=== PATIENT | male | born 1955 | race Caucasian/White ===

== ENCOUNTER 2017-03-24 08:31 | Inpatient (IN) | payer MEDICARE, OTHER ==
[2017-03-24] MEDS ORDERED: NACL 0.9% 1000 ML 1,000 ML IV ONE (08:54)
[2017-03-24] MEDS ORDERED: ZOFRAN IV ONE (09:27)
[2017-03-24] MEDS ORDERED: ZOFRAN ONE (09:29)
[2017-03-24 09:41] LABS: Basophils % (Auto) 0.5 % (0.0-1.8); Eosinophils % (Auto) 1.6 % (0.0-4.3); Mean Corpuscular HGB Conc 32 % (32-34); Mean Corpuscular Hemoglobin 30 pg (28-32); Mean Corpuscular Volume 94 fl (84-94); Platelet Count 189 K/mm3 (140-440); Red Blood Count 1.13 M/mm3 (3.65-5.03); White Blood Count 9.7 K/mm3 (4.5-11.0)
[2017-03-24 09:43] LABS: Hematocrit 10.6 % (35.5-45.6); Hemoglobin 3.4 gm/dl (11.8-15.2)
[2017-03-24 09:44] LABS: Red Cell Distribution Width 20.1 % (13.2-15.2)
[2017-03-24] MEDS ORDERED: NACL 0.9% 500 ML 500 ML IV ONE ×3 (09:48→16:29)
[2017-03-24 09:59] LABS: Alanine Aminotransferase 14 units/L (7-56); Albumin 1.9 g/dL (3.9-5); Albumin/Globulin Ratio 0.7 %; Alkaline Phosphatase 129 units/L (35-129); Anion Gap 18 mmol/L; Bilirubin,Direct 0.6 mg/dL (0-0.2); Bilirubin,Indirect 0.9 mg/dL; Blood Urea Nitrogen 40 mg/dL (9-20); Calcium 7.1 mg/dL (8.4-10.2); Carbon Dioxide 20 mmol/L (22-30); Chloride 102.3 mmol/L (98-107); Glucose 107 mg/dL (75-100); Lipase 146 units/L (13-60); Sodium 136 mmol/L (137-145); Total Protein 4.7 g/dL (6.3-8.2)
[2017-03-24 10:00] LABS: INR 1.62 (0.87-1.13)
[2017-03-24 10:01] LABS: Partial Thromboplastin Time 34.8 Sec. (24.2-36.6)
[2017-03-24] MEDS ORDERED: PROTONIX IV ONE (10:15)
--- NOTE | 2017-03-24 11:10 | Emergency Department Report ---
ED GI Bleed HPI - General Chief complaint: Weakness Stated complaint: WEAKNESS Time Seen by Provider: 03/24/17 09:32 Source: EMS Mode of arrival: Stretcher Limitations: No Limitations - History of Present Illness Initial comments: Pt presents to ED with c/o generalize weakness, vomiting bright red blood, black stools on and off x 2 weeks. Pt had an episode of hematemesis this morning. Pt was recently at [facility] and revealed he was transfused about 2-4 units of blood. Pt has past medical h/o Liver cirrhosis complaint: gross hematemesis, melena -: Sudden (episode this morning. Over the last 2 weeks, pt has had on and off episodes) Location: epigastric (discomfort) Radiation: none Severity scale (0 -10): 5 Quality: cramping Consistency: intermittent Improves with: none Worsens with: none Context: liver disease Associated Symptoms: abdominal pain, nausea, loss of appetite, malaise, weakness - Related Data Allergies Allergy/AdvReac Type Severity Reaction Status Date / Time Penicillins AdvReac Rash Verified 03/24/17 08:49 ED Review of Systems ROS: Stated complaint: WEAKNESS Other details as noted in HPI Comment: All other systems reviewed and negative Constitutional: diaphoresis, malaise, weakness. denies: fever Eyes: denies: eye pain, eye discharge, vision change ENT: denies: ear pain, throat pain, dental pain, hearing loss Respiratory: shortness of breath. denies: cough, SOB at rest Cardiovascular: denies: as per HPI, chest pain, palpitations, dyspnea on exertion, edema, syncope Endocrine: no symptoms reported Gastrointestinal: as per HPI, abdominal pain, nausea, vomiting, hematemesis, melena Genitourinary: denies: urgency, frequency, hematuria, discharge Skin: denies: lesions, change in color, change in hair/nails, pruritus Neurological: weakness. denies: numbness, paresthesias, confusion ED Past Medical Hx - Past Medical History Previous Medical History?: Yes Hx Liver Disease: Yes Additional medical history: GI Bleed, Jaundice, Cirrhosis - Social History Smoking Status: Former Smoker ED Physical Exam - General Limitations: No Limitations General appearance: lethargic, in distress (mild to moderate), other (anemic) - Head Head exam: Present: atraumatic, normocephalic - Eye Eye exam: Present: normal appearance, PERRL, EOMI, scleral icterus - ENT ENT exam: Present: normal orophraynx, mucous membranes dry - Neck Neck exam: Present: normal inspection, full ROM. Absent: tenderness, meningismus, lymphadenopathy - Respiratory Respiratory exam: Present: normal lung sounds bilaterally. Absent: wheezes, rales, rhonchi, chest wall tenderness - Cardiovascular Cardiovascular Exam: Present: regular rate, normal rhythm, normal heart sounds - GI/Abdominal GI/Abdominal exam: Present: soft, tenderness (epigastric region), hypoactive bowel sounds - Rectal Rectal exam: Present: deferred - Extremities Exam Extremities exam: Present: normal inspection, full ROM - Back Exam Back exam: Present: normal inspection, CVA tenderness (L) - Neurological Exam Neurological exam: Present: alert, oriented X3 ED Course Vital Signs 03/24/17 03/24/17 03/24/17 08:49 10:00 10:20 Temperature 98 F 98.1 F Pulse Rate 66 89 90 Respiratory 18 16 18 Rate Blood Pressure 104/46 122/59 Blood Pressure 111/45 [Left] O2 Sat by Pulse 100 100 99 Oximetry 03/24/17 03/24/17 03/24/17 10:31 10:46 11:08 Temperature 97.9 F 98.3 F 98 F Pulse Rate 98 H 96 H 90 Respiratory 17 18 18 Rate Blood Pressure 119/55 110/49 112/48 Blood Pressure [Left] O2 Sat by Pulse 100 100 100 Oximetry 03/24/17 03/24/17 03/24/17 11:29 11:44 12:25 Temperature 98 F 98.3 F 98 F Pulse Rate 89 89 84 Respiratory 18 18 18 Rate Blood Pressure 119/51 107/51 122/69 Blood Pressure [Left] O2 Sat by Pulse 100 100 100 Oximetry - Consultations Consultation #1: 03/24/17 11:10 d/w JENN Walton, covering from Dr Ivey,[ GI ] she would come and see pt in ED 03/24/17 12:37 Pt discussed with Hospitalist, he accepts, pt'ss admission ED Medical Decision Making - Lab Data Result diagrams: 03/24/17 09:25 03/24/17 09:24 - EKG Data -: EKG Interpreted by Me EKG shows normal: sinus rhythm, axis (normal) - EKG Data 09/27/17 09:14 NSR, rate of 94/min, normal axis, STD in I,II, III aVF, V3-V6 T wave inversions in I, II, III aVF, V 3-V6, Critical Care Time: Yes Critical care attestation.: If time is entered above; I have spent that time in minutes in the direct care of this critically ill patient, excluding procedure time. Critical Care Time: 30 mins ED Disposition Clinical Impression: GI (gastrointestinal bleed), Liver cirrhosis, alcoholic Disposition: OP ADMIT IP TO THIS HOSP Is pt being admited?: Yes Does the pt Need Aspirin: No Condition: Critical Referrals: PRIMARY CARE, [Primary Care Provider] - 3-5 Days Time of Disposition: 12:15
--- NOTE | 2017-03-24 11:47 | Gastroenterology Consultation ---
History of Present Illness - Reason for Consult Consult date: 03/24/17 UGIB Requesting physician: CRAIG HOLLANDUNOR - History of Present Illness Patient is a 61 y/o male with a hx of alcoholic cirrhosis (currently still drinking alcohol with on average 1 drink a day), narcotic dependence, DTs, COPD , depression, and chronic osteomyelitis who presented to the ER with c/o weakness, hematemesis, melena, and epigastric pain. HGB on admission was noted to be 3.4. GI has been consulted for GI bleed. Patient resting on stretcher in ER this morning. Second unit of PRBCs currently transfusing along with PPI drip and octreotide. Pt reports melena x 3 to 4 months and N/V with bright red blood and coffee ground emesis x 1 day. Last episode of hematemesis/coffee ground emesis was this am. Last EGD was approximately 3 weeks ago in [facility] for similar symptoms, however pt is unsure of results but thinks an ulcer was found. On daily PPI. Takes Aleve on average 4 to 5 times per month. He reports a hx of ascites with need for PRN paracentesis until he underwent TIPS procedure in [place] several months ago, which has now improved symptoms of ascites and encephalopathy. No hx of HCV or HBV. Denies fever, abd pain, jaundice, diarrhea, constipation, or hematochezia. Past History Past Medical History: COPD, liver disease, other (alcoholic cirrhosis, ascites, narcotic dependence, ETOH abuse, DTs, depression, chronic osteomyelitis) Past Surgical History: total hip replacement, Other (shoulder, TIPS) Social history: alcohol abuse, prescription drug abuse. denies: smoking Medications and Allergies Allergies Allergy/AdvReac Type Severity Reaction Status Date / Time Penicillins AdvReac Rash Verified 03/24/17 08:49 Active Meds: Active Medications Sodium Chloride (Nacl 0.9% 1000 Ml) 1,000 mls @ 250 mls/hr IV ONCE ONE Stop: 03/24/17 12:53 Last Admin: 03/24/17 09:24 Dose: 250 mls/hr Octreotide Acetate 500 mcg/ (Sodium Chloride) 101 mls @ 10.1 mls/hr IV TITR ELIJAH ; 50 MCG/HR PRN Reason: Protocol Pantoprazole Sodium 80 mg/ (Sodium Chloride) 100 mls @ 10 mls/hr IV Q10H ELIJAH PRN Reason: 8 MG/HR Review of Systems - Review of Systems All systems: negative Constitutional: weakness Gastrointestinal: abdominal pain, nausea, vomiting, hematemesis, coffee ground emesis, melena Exam - Constitutional Vital Signs: Temp Pulse Resp BP Pulse Ox 98 F 89 18 119/51 100 03/24/17 11:29 03/24/17 11:29 03/24/17 11:29 03/24/17 11:29 03/24/17 11:29 General appearance: mild distress, well-nourished - EENT Eyes: PERRL, EOM intact ENT: hearing intact - Respiratory Respiratory: bilateral: diminished - Cardiovascular Rhythm: regular Heart Sounds: Present: S1 & S2 Extremities: No edema Extremity abnormal: other ( lower extremity ulcers) - Gastrointestinal General gastrointestinal: Present: soft, tender (epigastric), non-distended, normal bowel sounds - Integumentary Integumentary: Present: warm, dry. Absent: jaundice - Neurologic Neurological: alert and oriented x3 - Labs CBC & Chem 7: 03/24/17 09:25 03/24/17 09:24 Lab Results: Laboratory Results - last 24 hr 03/24/17 03/24/17 03/24/17 09:24 09:24 09:25 WBC 9.7 RBC 1.13 L Hgb 3.4 L* Hct 10.6 L* MCV 94 MCH 30 MCHC 32 RDW 20.1 H Plt Count 189 Lymph % (Auto) 15.0 [place] % (Auto) 12.0 H Eos % (Auto) 1.6 Baso % (Auto) 0.5 Lymph # 1.4 [place] # 1.2 H Eos # 0.2 Baso # 0.0 Seg Neutrophils % 70.9 H Seg Neutrophils # 6.8 PT 19.2 H INR 1.62 H APTT 34.8 Sodium 136 L Potassium 4.0 Chloride 102.3 Carbon Dioxide 20 L Anion Gap 18 BUN 40 H Creatinine 1.0 Estimated GFR > 60 BUN/Creatinine Ratio 40.00 Glucose 107 H Calcium 7.1 L Total Bilirubin 1.50 H Direct Bilirubin 0.6 H Indirect Bilirubin 0.9 AST 32 ALT 14 Alkaline Phosphatase 129 Total Protein 4.7 L Albumin 1.9 L Albumin/Globulin Ratio 0.7 Lipase 146 H Blood Type Antibody Screen Crossmatch 03/24/17 09:26 WBC RBC Hgb Hct MCV MCH MCHC RDW Plt Count Lymph % (Auto) [place] % (Auto) Eos % (Auto) Baso % (Auto) Lymph # [place] # Eos # Baso # Seg Neutrophils % Seg Neutrophils # PT INR APTT Sodium Potassium Chloride Carbon Dioxide Anion Gap BUN Creatinine Estimated GFR BUN/Creatinine Ratio Glucose Calcium Total Bilirubin Direct Bilirubin Indirect Bilirubin AST ALT Alkaline Phosphatase Total Protein Albumin Albumin/Globulin Ratio Lipase Blood Type O POSITIVE Antibody Screen Negative Crossmatch See Detail Assessment and Plan 1.GI bleed 2.hematemesis 3.coffee-ground emesis 4.melena 5.alcoholic cirrhosis -INR 1.62, T. tobias 1.50 -AST, ALT, Alk phos-WNL -lipase 146 -HGB 3.5 on admission-2nd unit PRBCs currently transfusing -continue to monitor H/H and transfuse as needed -hold blood thinning medications -last episode of hematemesis/coffee ground emesis and melena this morning -currently hemodynamically stable -continue PPI drip and octreotide drip -continue supportive care -keep NPO -will schedule for EGD this afternoon to r/o possible varices vs PUD vs other -will follow
[2017-03-24] MEDS: SandoSTATIN 500 MCG in NACL 0.9% 100 ML IV SCH (11:55)
[2017-03-24] MEDS ORDERED: ALUM-MAG HYDROX-SIMETH 200-200-20MG/5ML PO PRN (12:29)
[2017-03-24] MEDS ORDERED: DULCOLAX PR PRN (12:29)
[2017-03-24] MEDS ORDERED: MILK OF MAGNESIA PO PRN (12:29)
[2017-03-24] MEDS: PROTONIX 80 MG in NACL 0.9% 100 ML IV SCH ×2 (12:41→20:10)
--- NOTE | 2017-03-24 13:20 | XRay Report ---
Single view chest: History: Weakness. Findings: Borderline cardiomegaly. Trachea is midline. No consolidation, pneumothorax or pleural effusion. Impression: No acute cardiopulmonary findings.
[2017-03-24] MEDS ORDERED: NACL 0.9% 1000 ML 1,000 ML ONE (16:02)
[2017-03-24 16:23] LABS: Hematocrit 14.7 % (35.5-45.6); Hemoglobin 4.9 gm/dl (11.8-15.2)
[2017-03-24] MEDS ORDERED: AMIDATE IV ONE (16:30)
[2017-03-24] MEDS ORDERED: DIPRIVAN 10 MG/ML IV ONE ×2 (16:30)
--- NOTE | 2017-03-24 17:01 | Operative Report ---
Operative Report Operative Report: Date of procedure: 03/24/2017 Procedure: Esophagogastroduodenoscopy Preprocedure diagnosis: Acute upper GI bleeding. History of cirrhosis due to alcohol. 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 No esophageal varices. Normal antrum and duodenum. The gastric curvature and fundus were largely obscured by old blood. No active bleeding was present.] Endoscopist: Dr. vIey Anesthesia: Monitored anesthesia care per anesthesia department Medications: Propofol per anesthesia Estimated blood loss: 0 After careful discussion of the nature and purpose of the procedure as well as details the technique risks benefits and alternatives consent was obtained. The patient was placed in the left lateral decubitus position and medicated per anesthesia. The tip of the [employer]. EQ 570 video scope was passed per orum under direct vision into the esophagus and advanced into the stomach and descending duodenum. The descending duodenum the duodenal bulb and pylorus were symmetrical and normal. The scope was withdrawn into the stomach and the stomach then gently insufflated with air. The antrum was normal. The stomach was further insufflated and the scope was then retroflexed and partially withdrawn. The cardia revealed a moderate size cluster of varices which were nonbleeding. The fundus and body of the stomach were largely obscured by the presence of old blood. There is no fresh bleeding apparent. The stomach was easily distensible. The scope was then withdrawn in the forward position. The esophagogastric junction was at [40 cm]. The esophageal body was normal throughout with no varices being evident. The procedure was was well tolerated and the patient was observed in recovery. Impressions: [Moderate size nonbleeding varices in the cardia. Normal antrum and duodenum. Normal esophagus without varices. Greater curvature and part of the fundus obscured by old blood.] Plan: Continue octreotide. He will need a second look endoscopy prior to discharge to exclude additional pathology obscured by old blood. Recommend Doppler study to assess the patency of the TIPS. Electronically signed: Austin Ivey MD
--- NOTE | 2017-03-24 17:14 | History and Physical Report ---
History of Present Illness Date of admission: 03/24/17 12:29 Chief complaint: I feel weak, and i been bleeding History of present illness: 61 YO Male with COPD, ETOH Cirrhosis, ETOH Dependence, Narcotic Dependence, COPD , Chronic Osteomyelitis presents to ED for evaluation. Pt states that he has experienced weakness, dark tarry stool, and hematemesis for the past 3 months with worsening symptoms over the past 1 day. Pt denies fever, chills, CP, Palpitations, Syncope, productive cough, recent ill contacts. Pt acknowledges melena. Pt seen and evaluated in ED and found to be in distress and with severe blood loss anemia. . Pt taken urgently to Endoscopy suite as per GI team for intervention. Past History Past Medical History: COPD, liver disease, other (alcoholic cirrhosis, ascites, narcotic dependence, ETOH abuse, DTs, depression, chronic osteomyelitis) Past Surgical History: total hip replacement, Other (shoulder, TIPS) Social history: alcohol abuse, prescription drug abuse. denies: smoking Family history: hypertension Medications and Allergies Allergies Allergy/AdvReac Type Severity Reaction Status Date / Time Penicillins AdvReac Rash Verified 03/24/17 08:49 Home Medications Medication Instructions Recorded Confirmed Last Taken Type Ibuprofen [Advil 100 MG tab] 200 mg PO Q6H PRN 03/24/17 03/24/17 03/23/17 History Active Meds: Active Medications Al Hydrox/Mg Hydrox/Simethicone (Alum-Mag Hydrox-Simeth [id number]/5ml) 30 ml PO Q4H PRN PRN Reason: Indigestion Bisacodyl (Dulcolax) 10 mg MI QDAY PRN PRN Reason: constipation unrelieved by MOM Octreotide Acetate 500 mcg/ (Sodium Chloride) 101 mls @ 10.1 mls/hr IV TITR ELIJAH ; 50 MCG/HR PRN Reason: Protocol Last Admin: 03/24/17 11:55 Dose: 50 mcg/hr, 10.1 mls/hr Pantoprazole Sodium 80 mg/ (Sodium Chloride) 100 mls @ 10 mls/hr IV Q10H ELIJAH PRN Reason: 8 MG/HR Last Admin: 03/24/17 12:41 Dose: 8 mg/hr, 10 mls/hr Magnesium Hydroxide (Milk Of Magnesia) 30 ml PO Q4H PRN PRN Reason: Constipation Review of Systems Constitutional: weakness, no weight loss, no weight gain Ears, nose, mouth and throat: no ear pain, no ear discharge, no tinnitis, no decreased hearing, no nose pain, no nasal congestion Cardiovascular: no chest pain, no orthopnea, no palpitations, no rapid/ irregular heart beat Respiratory: no cough, no cough with sputum, no excessive sputum, no hemoptysis , no shortness of breath Gastrointestinal: melena, hematochezia, no abdominal pain, no nausea, no vomiting, no diarrhea Genitourinary Male: no hematuria, no flank pain, no discharge, no urinary frequency Rectal: no pain, no incontinence, no bleeding Musculoskeletal: no neck stiffness, no neck pain, no shooting arm pain, no arm numbness/tingling, no low back pain Integumentary: no rash, no pruritis, no redness, no sores, no wounds, no jaundice Neurological: no head injury, no transient paralysis, no paralysis, no weakness , no parathesias, no numbness, no tingling Psychiatric: no anxiety, no memory loss, no change in sleep habits, no sleep disturbances, no insomnia, no hypersomnia, no change in appetite Endocrine: no cold intolerance, no heat intolerance, no polyphagia, no excessive thirst, no polydipsia, no polyuria Hematologic/Lymphatic: no easy bruising, no easy bleeding Allergic/Immunologic: no urticaria, no allergic rhinitis, no wheezing Exam - Constitutional Vitals: Temp Pulse Resp BP Pulse Ox 98 F 77 18 112/60 100 03/24/17 16:39 03/24/17 16:39 03/24/17 16:39 03/24/17 16:39 03/24/17 16:39 General appearance: Present: severe distress, disheveled - EENT Eyes: Present: PERRL (conjunctival pallor) ENT: hearing intact, clear oral mucosa - Neck Neck: Present: supple, normal ROM - Respiratory Respiratory: bilateral: diminished - Cardiovascular Heart Sounds: Present: S1 & S2. Absent: rub, click - Extremities Extremities: pulses symmetrical, No edema Peripheral Pulses: within normal limits - Abdominal General gastrointestinal: Present: soft, non-tender, non-distended, normal bowel sounds Male genitourinary: Present: normal - Integumentary Integumentary: Present: clear, warm, dry - Musculoskeletal Musculoskeletal: generalized weakness - Psychiatric Psychiatric: appropriate mood/affect, intact judgment & insight - Neurologic Neurologic: CNII-XII intact, moves all extremities Results - Labs CBC & Chem 7: 03/24/17 15:36 03/24/17 09:24 Labs: Abnormal lab results 03/24/17 Range/Units 15:36 Hgb 4.9 L* (11.8-15.2) gm/dl Hct 14.7 L* (35.5-45.6) % Assessment and Plan - Patient Problems (1) GI (gastrointestinal bleed) Current Visit: Yes Status: Acute Qualifiers: GI bleed type/associated pathology: G Gastritis type: G Plan to address problem: GI consulted in ED, PPI therapy, octreotide drip, serial physical exam, serial cbc, PRBC transfusion. The high probability of a clinically significant, sudden or life threatening deterioration of the [Cardiac, Pulmonary, hematologic] system(s) required my full and direct attention, intervention and personal management. The aggregate critical care time was [65] minutes. This time is in addition to time spent performing reported procedures but includes the following: [x] Data Review and interpretation [x] Patient assessment and monitoring of vital signs [x] Documentation [x] Medication orders and management (2) Blood loss anemia Current Visit: Yes Status: Acute Plan to address problem: PRBC transfusion, serial cbc, (3) Metabolic acidosis Current Visit: Yes Status: Acute Plan to address problem: IVF replacement, supportive care, (4) Hypotension Current Visit: Yes Status: Acute Qualifiers: Hypotension type: H Trimester: T Plan to address problem: PRBC transfusion, supportive care, (5) DVT prophylaxis Current Visit: Yes Status: Acute
--- NOTE | 2017-03-24 17:20 | Anesthesia Consultation ---
Anesthesia Consult and Med Hx Date of service: 03/24/17 - Pulmonary Exam CTA: Yes - Cardiac Exam Cardiac Exam: RRR - Pre-Operative Health Status ASA Pre-Surgery Classification: ASA4, Emergency Proposed Anesthetic Plan: MAC - Pulmonary Hx Smoking: Yes - Endocrine Hx Cirrhosis: Yes Hx Liver Disease: Yes (Hx TIPS, ascites) - Hematic Hx Anemia: Yes (sp 3 PRBCs) - Other Systems Hx Alcohol Use: Yes Hx Substance Use: Yes - Additional Comments Anesthesia Medical History Comments: NAC
--- NOTE | 2017-03-24 17:21 | Anesthesia Day of Surgery ---
Anesthesia Day of Surgery - Day of Surgery Patient Examined: Yes Patient H&P Reviewed: Yes Patient is NPO: Yes
[2017-03-24] MEDS ORDERED: ATIVAN IV ONE (18:20)
[2017-03-24] MEDS ORDERED: 1: FOLVITE 1 MG, INFUVITE 10 ML, VITAMIN B-1 100 MG in NACL 0.9% 1000 ML 988.8 ML 2: NA IV SCH (19:00)
[2017-03-24] MEDS: VITAMIN B-1 100 MG, FOLVITE 1 MG, INFUVITE 10 ML in NACL 0.9% 1000 ML 1,000 ML IV SCH (20:10)
[2017-03-24] MEDS: ATIVAN IV PRN (23:04)
[2017-03-25] MEDS ORDERED: NACL 0.9% 1000 ML 1,000 ML IV SCH (04:00)
[2017-03-25] MEDS ORDERED: PROTONIX 80 MG in NACL 0.9% 100 ML IV SCH (05:00)
[2017-03-25 05:11] LABS: Hemoglobin 6.4 gm/dl (11.8-15.2)
--- NOTE | 2017-03-25 09:17 | Gastroenterology Progress Note ---
Assessment and Plan 1.GI bleed 2.hematemesis 3.coffee-ground emesis 4.melena 5.alcoholic cirrhosis -HGB 6.4- s/p transfusion on 4 units PRBCs yesterday -continue to monitor H/H and transfuse as needed -hold blood thinning medications -no active sign of bleeding overnight or this am -currently hemodynamically stable -continue PPI and octreotide drip -continue supportive care -s/p EGD yesterday revealing moderate size varices in the cardia, no esophageal varices, and gastric curvature and fundus obscured by old blood -will order a state doppler u/s today to assess patency of TIPS -NPO after MN for possible repeat EGD in am -will follow Subjective Date of service: 03/25/17 Principal diagnosis: GI bleed Interval history: Patient resting in bed w/o acute distress. Denies signs of active bleeding overnight or this am. Objective - Constitutional Vitals: Temp Pulse Resp BP Pulse Ox 97.9 F 62 12 118/73 100 03/24/17 18:34 03/25/17 06:46 03/25/17 06:46 03/25/17 06:46 03/25/17 06:46 General appearance: no acute distress - EENT Eyes: PERRL, EOM intact ENT: hearing intact - Neck Neck: supple, normal ROM - Respiratory Respiratory: bilateral: diminished - Cardiovascular Rhythm: regular Heart Sounds: Present: S1 & S2 - Extremities Extremity abnormal: other (BLE ulcers) - Gastrointestinal General gastrointestinal: Present: soft, non-tender, non-distended, normal bowel sounds - Integumentary Integumentary: Present: warm, dry - Neurologic Neurological: alert and oriented x3 - Labs CBC & Chem 7: 03/25/17 04:43 03/24/17 09:24 Labs: Laboratory Results - last 24 hr 03/24/17 03/25/17 15:36 04:43 Hgb 4.9 L* 6.4 L Hct 14.7 L* 20.0 L
[2017-03-25] MEDS: PROTONIX IV SCH (11:15)
[2017-03-25] MEDS ORDERED: ATIVAN IV ONE (14:48)
--- NOTE | 2017-03-25 16:55 | Progress Note ---
Assessment and Plan Assessment and plan: 61 yo male with alcoholic cirrhosis, s/p TIPS, presented for weakness, hematemesis, black tarry stools and was found to have severe blood loss anemia 1. Upper GI bleed Given his underlying condition of cirrhosis status post TIPS and significant blood loss, was taken emergently to GI lab and underwent endoscopy which revealed no esophageal varices, but moderate varices in the cardia, gastric curvature and fundus obscured by old blood Started on octreotide and PPI drips Plan for second look endoscopy to exclude additional pathology obscured by old blood, as well as, Doppler study to assess the patency of the TIPS 2. Severe acute blood loss anemia Hemoglobin 3.4 on admission Transfuse PRBCs Monitor H&H closely 3. Hypotension Secondary to hypovolemia Transfuse PRBCs, IV fluids 4. Metabolic acidosis Treatment underlying conditions 5. Coagulopathy Secondary to cirrhosis 6. Pancreatitis NPO, IV fluids, pain control medication 7. Severe protein caloric malnutrition Diet supplementation when able to take by mouth 8. Alcohol abuse CIWA protocol Banana bag 9. DVT prophylaxis SCDs. No pharmacological agent given severe anemia cc 35 min History Interval history: no further bleeding; s/p EGD today Hospitalist Physical - Constitutional Vitals: Temp Pulse Resp BP Pulse Ox 97.9 F 77 15 119/74 100 03/24/17 18:34 03/25/17 16:10 03/25/17 16:10 03/25/17 16:10 03/25/17 16:10 General appearance: Present: no acute distress, cachectic, disheveled - EENT Eyes: Present: PERRL, EOM intact - Neck Neck: Present: supple. Absent: enlarged thyroid, masses or JVD - Respiratory Respiratory effort: normal Respiratory: bilateral: CTA, negative: rhonchi, wheezing - Cardiovascular Rhythm: other (tachycardic) Heart Sounds: Present: S1 & S2. Absent: systolic murmur - Extremities Extremities: no ischemia, abnormal (bilateral LE ulcers) - Abdominal General gastrointestinal: soft, non-tender, non-distended, normal bowel sounds - Psychiatric Psychiatric: no intact judgment & insight, no memory intact - Neurologic Neurologic: moves all extremities Results - Labs CBC & Chem 7: 03/28/17 17:33 03/28/17 14:42 Labs: Laboratory Last Values WBC 9.7 K/mm3 (4.5-11.0) 03/24/17 09:25 RBC 1.13 M/mm3 (3.65-5.03) L 03/24/17 09:25 Hgb 6.4 gm/dl (11.8-15.2) L 03/25/17 04:43 Hct 20.0 % (35.5-45.6) L 03/25/17 04:43 MCV 94 fl (84-94) 03/24/17 09:25 MCH 30 pg (28-32) 03/24/17 09:25 MCHC 32 % (32-34) 03/24/17 09:25 RDW 20.1 % (13.2-15.2) H 03/24/17 09:25 Plt Count 189 K/mm3 (140-440) 03/24/17 09:25 Lymph % (Auto) 15.0 % (13.4-35.0) 03/24/17 09:25 [place] % (Auto) 12.0 % (0.0-7.3) H 03/24/17 09:25 Eos % (Auto) 1.6 % (0.0-4.3) 03/24/17 09:25 Baso % (Auto) 0.5 % (0.0-1.8) 03/24/17 09:25 Lymph # 1.4 K/mm3 (1.2-5.4) 03/24/17 09:25 [place] # 1.2 K/mm3 (0.0-0.8) H 03/24/17 09:25 Eos # 0.2 K/mm3 (0.0-0.4) 03/24/17 09:25 Baso # 0.0 K/mm3 (0.0-0.1) 03/24/17 09:25 Seg Neutrophils % 70.9 % (40.0-70.0) H 03/24/17 09:25 Seg Neutrophils # 6.8 K/mm3 (1.8-7.7) 03/24/17 09:25 PT 19.2 Sec. (12.2-14.9) H 03/24/17 09:24 INR 1.62 (0.87-1.13) H 03/24/17 09:24 APTT 34.8 Sec. (24.2-36.6) 03/24/17 09:24 Sodium 136 mmol/L (137-145) L 03/24/17 09:24 Potassium 4.0 mmol/L (3.6-5.0) 03/24/17 09:24 Chloride 102.3 mmol/L (98-107) 03/24/17 09:24 Carbon Dioxide 20 mmol/L (22-30) L 03/24/17 09:24 Anion Gap 18 mmol/L 03/24/17 09:24 BUN 40 mg/dL (9-20) H 03/24/17 09:24 Creatinine 1.0 mg/dL (0.8-1.5) 03/24/17 09:24 Estimated GFR > 60 ml/min 03/24/17 09:24 BUN/Creatinine Ratio 40.00 % 03/24/17 09:24 Glucose 107 mg/dL (75-100) H 03/24/17 09:24 Calcium 7.1 mg/dL (8.4-10.2) L 03/24/17 09:24 Total Bilirubin 1.50 mg/dL (0.1-1.2) H 03/24/17 09:24 Direct Bilirubin 0.6 mg/dL (0-0.2) H 03/24/17 09:24 Indirect Bilirubin 0.9 mg/dL 03/24/17 09:24 AST 32 units/L (5-40) 03/24/17 09:24 ALT 14 units/L (7-56) 03/24/17 09:24 Alkaline Phosphatase 129 units/L (35-129) 03/24/17 09:24 Total Protein 4.7 g/dL (6.3-8.2) L 03/24/17 09:24 Albumin 1.9 g/dL (3.9-5) L 03/24/17 09:24 Albumin/Globulin Ratio 0.7 % 03/24/17 09:24 Lipase 146 units/L (13-60) H 03/24/17 09:24 Blood Type O POSITIVE 03/24/17 09:26 Antibody Screen Negative 03/24/17 09:26 Crossmatch See Detail 03/24/17 09:26
[2017-03-25] MEDS: ATIVAN IV PRN ×4 (17:12→22:47)
[2017-03-25] MEDS ORDERED: VITAMIN B-1 100 MG, FOLVITE 1 MG, INFUVITE 10 ML in NACL 0.9% 1000 ML 1,000 ML IV ONE (17:30)
[2017-03-25] MEDS ORDERED: LIBRIUM PO PRN (20:00)
[2017-03-25] MEDS ORDERED: ATIVAN ONE (20:06)
[2017-03-25 20:07] LABS: Hematocrit 13.8 % (35.5-45.6); Hemoglobin 4.5 gm/dl (11.8-15.2)
[2017-03-25] MEDS ORDERED: NACL 0.9% 500 ML 500 ML IV ONE (20:08)
[2017-03-25] MEDS ORDERED: NACL 0.9% 500 ML 500 ML ONE (23:20)
[2017-03-25] MEDS ORDERED: HALDOL IV ONE (23:30)
[2017-03-26] MEDS: ATIVAN IV PRN ×2 (01:35→22:34)
[2017-03-26] MEDS ORDERED: HALDOL ONE (02:11)
[2017-03-26] MEDS: HALDOL IM PRN (02:38)
[2017-03-26 05:58] LABS: Basophils % (Auto) 0.3 % (0.0-1.8); Eosinophils % (Auto) 5.4 % (0.0-4.3); Hematocrit 24.1 % (35.5-45.6); Mean Corpuscular HGB Conc 33 % (32-34); Mean Corpuscular Hemoglobin 29 pg (28-32); Mean Corpuscular Volume 88 fl (84-94); Platelet Count 101 K/mm3 (140-440); Red Blood Count 2.74 M/mm3 (3.65-5.03); Red Cell Distribution Width 17.3 % (13.2-15.2); White Blood Count 5.6 K/mm3 (4.5-11.0)
[2017-03-26 06:15] LABS: Anion Gap 13 mmol/L; Blood Urea Nitrogen 28 mg/dL (9-20); Calcium 6.6 mg/dL (8.4-10.2); Carbon Dioxide 19 mmol/L (22-30); Chloride 114.8 mmol/L (98-107); Glucose 76 mg/dL (75-100); Potassium 4.5 mmol/L (3.6-5.0); Sodium 142 mmol/L (137-145)
--- NOTE | 2017-03-26 08:12 | Vascular Lab Report ---
PORTAL VEIN DUPLEX EVALUATION of the TIPS INDICATION: Abdominal pain with concern for portal vein thrombosis. FINDINGS: Limited study shows flow in the TIPS. Intrahepatic nor portal veins visualized IMPRESSION: Patent TIPS
[2017-03-26] MEDS: PROTONIX IV SCH (11:53)
[2017-03-26] MEDS: VITAMIN B-1 100 MG, FOLVITE 1 MG, INFUVITE 10 ML in NACL 0.9% 1000 ML 1,000 ML IV SCH (13:01)
[2017-03-26] MEDS: SandoSTATIN 500 MCG in NACL 0.9% 100 ML IV SCH (13:20)
[2017-03-26] MEDS: NACL 0.9% 1000 ML 1,000 ML IV SCH ×2 (14:22→22:23)
--- NOTE | 2017-03-26 14:28 | Anesthesia Consultation ---
Anesthesia Consult and Med Hx Date of service: 03/26/17 - Airway Anesthetic Teeth Evaluation: Edentulous ROM Head & Neck: Adequate Mental/Hyoid Distance: Adequate Mallampati Class: Class III Intubation Access Assessment: Possibly Difficult - Pulmonary Exam CTA: Yes - Cardiac Exam Cardiac Exam: RRR - Pre-Operative Health Status ASA Pre-Surgery Classification: ASA4 Proposed Anesthetic Plan: MAC - Pulmonary Hx Smoking: Yes Hx Asthma: No COPD: No Hx Pneumonia: No - Endocrine Hx End Stage Renal Disease: No Hx Cirrhosis: Yes Hx Liver Disease: Yes (Hx TIPS, ascites) - Hematic Hx Anemia: Yes (sp 3 PRBCs) - Other Systems Hx Alcohol Use: Yes Hx Substance Use: Yes - Additional Comments Anesthesia Medical History Comments: NAC
--- NOTE | 2017-03-26 14:28 | Anesthesia Day of Surgery ---
Anesthesia Day of Surgery - Day of Surgery Patient Examined: Yes Patient H&P Reviewed: Yes Patient is NPO: Yes
[2017-03-26] MEDS ORDERED: AMIDATE IV ONE (15:00)
[2017-03-26] MEDS ORDERED: CEPHULAC PO PRN (15:23)
--- NOTE | 2017-03-26 15:31 | Post Operative Note ---
Pre-op diagnosis: GI bleed, Cirrhsis Post-op diagnosis: other (varices, portal gastropathy) Findings: 1. No esophageal varices 2. Two clusters of isolated gastric varices in the proximal fundus; one appeared to have a hemocystic spot - Not treated as no obvious communication from esophageal varices 3. Moderate portal gastropathy. 4. Antrum/duodenum with no evidence of ulcer disease 5. No blood/clots in upper GI tract Procedure: EGD Anesthesia: MAC Surgeon: MILVIA GALLEGOS Estimated blood loss: none Pathology: none Specimen disposition: other (N/A) Condition: stable Disposition: floor (Recs: 1. Will get CT with IV contrast to better visualize splenic area/vein for isolated gastric varices (TIPS is patent on US but poor quality). 2. Continue octreotide gtt and protonix BID for 48 more hours. 3. MVI/xifaxan daily therapy; add beta-corrina when clinically better. 4. Continue to transfuse PRN hct <23. 5. Continue CIWA for active DTs. 6. Should the patient decompensate, he is an appropriate candidate for hospice with active EtOH and cirrhosis; he is not a candidate for transfer to liver transplant facility.)
[2017-03-26] MEDS: THERAGRAN-M Tab PO SCH (15:55)
--- NOTE | 2017-03-26 20:52 | Progress Note ---
Assessment and Plan Assessment and plan: 61 yo male with alcoholic cirrhosis, s/p TIPS, presented for weakness, hematemesis, black tarry stools and was found to have severe blood loss anemia 1. Upper GI bleed Given his underlying condition of cirrhosis status post TIPS and significant blood loss, was taken emergently to GI lab and underwent endoscopy which revealed no esophageal varices, but moderate varices in the cardia, gastric curvature and fundus obscured by old blood 03/24 Started on octreotide and PPI drips 03/26 second look endoscopy to exclude additional pathology obscured by old blood ; showed no esophageal varices, 2 clusters of isolated gastric varices in the proximal fundus, moderate portal gastropathy TIPS patent per US but poor quality, CT abd w/contrast ordered GI recommended to continue Octreotide and PPI drips for 48 more hours 2. Severe acute blood loss anemia Hgb 3.4 on admission Transfused 6 units PRBCs Hemoglobin up to 8, but started to slowly trend down Monitor H&H closely 3. Hypotension Secondary to hypovolemia S/p PRBCs, IV fluids 4. Metabolic acidosis Treatunderlying conditions 5. Coagulopathy Secondary to cirrhosis 6. Pancreatitis NPO, IV fluids, pain control medication 7. Acute toxic metabolic encephalopathy Hepatitic encephalopathy/DTs Lactulose, Rifaximin, BZ 8. Severe protein caloric malnutrition Diet supplementation when able to take by mouth 8. Alcohol abuse/DTs CIWA protocol Banana bag 9. DVT prophylaxis SCDs. No pharmacological agent given severe anemia History Interval history: s/p 2nd EGD, no further bleeding confused, agitated at times Hospitalist Physical - Constitutional Vitals: Temp Pulse Resp BP Pulse Ox 97.5 F L 88 20 124/59 100 03/26/17 20:22 03/26/17 20:22 03/26/17 20:22 03/26/17 20:22 03/26/17 20:22 General appearance: Present: mild distress, cachectic, disheveled - EENT Eyes: Present: PERRL, EOM intact, scleral icterus. Absent: conjunctival injection - Neck Neck: Present: supple. Absent: enlarged thyroid, masses or JVD - Respiratory Respiratory effort: normal Respiratory: bilateral: diminished, negative: rhonchi, wheezing - Cardiovascular Rhythm: other Heart Sounds: Present: S1 & S2 (tachycardic). Absent: systolic murmur - Extremities Extremities: no ischemia - Abdominal General gastrointestinal: soft, non-tender, non-distended, normal bowel sounds - Psychiatric Psychiatric: no intact judgment & insight, no memory intact - Neurologic Neurologic: moves all extremities Results - Labs CBC & Chem 7: 03/28/17 17:33 03/28/17 14:42 Labs: Laboratory Last Values WBC 5.6 K/mm3 (4.5-11.0) 03/26/17 05:51 RBC 2.74 M/mm3 (3.65-5.03) L 03/26/17 05:51 Hgb 8.0 gm/dl (11.8-15.2) L D 03/26/17 05:51 Hct 24.1 % (35.5-45.6) L D 03/26/17 05:51 MCV 88 fl (84-94) 03/26/17 05:51 MCH 29 pg (28-32) 03/26/17 05:51 MCHC 33 % (32-34) 03/26/17 05:51 RDW 17.3 % (13.2-15.2) H 03/26/17 05:51 Plt Count 101 K/mm3 (140-440) L 03/26/17 05:51 Lymph % (Auto) 13.8 % (13.4-35.0) 03/26/17 05:51 [place] % (Auto) 10.9 % (0.0-7.3) H 03/26/17 05:51 Eos % (Auto) 5.4 % (0.0-4.3) H 03/26/17 05:51 Baso % (Auto) 0.3 % (0.0-1.8) 03/26/17 05:51 Lymph # 0.8 K/mm3 (1.2-5.4) L 03/26/17 05:51 [place] # 0.6 K/mm3 (0.0-0.8) 03/26/17 05:51 Eos # 0.3 K/mm3 (0.0-0.4) 03/26/17 05:51 Baso # 0.0 K/mm3 (0.0-0.1) 03/26/17 05:51 Seg Neutrophils % 69.6 % (40.0-70.0) 03/26/17 05:51 Seg Neutrophils # 3.9 K/mm3 (1.8-7.7) 03/26/17 05:51 PT 19.2 Sec. (12.2-14.9) H 03/24/17 09:24 INR 1.62 (0.87-1.13) H 03/24/17 09:24 APTT 34.8 Sec. (24.2-36.6) 03/24/17 09:24 Sodium 142 mmol/L (137-145) 03/26/17 05:51 Potassium 4.5 mmol/L (3.6-5.0) 03/26/17 05:51 Chloride 114.8 mmol/L (98-107) H 03/26/17 05:51 Carbon Dioxide 19 mmol/L (22-30) L 03/26/17 05:51 Anion Gap 13 mmol/L 03/26/17 05:51 BUN 28 mg/dL (9-20) H 03/26/17 05:51 Creatinine 0.7 mg/dL (0.8-1.5) L 03/26/17 05:51 Estimated GFR > 60 ml/min 03/26/17 05:51 BUN/Creatinine Ratio 40.00 % 03/26/17 05:51 Glucose 76 mg/dL (75-100) 03/26/17 05:51 Calcium 6.6 mg/dL (8.4-10.2) L 03/26/17 05:51 Total Bilirubin 1.50 mg/dL (0.1-1.2) H 03/24/17 09:24 Direct Bilirubin 0.6 mg/dL (0-0.2) H 03/24/17 09:24 Indirect Bilirubin 0.9 mg/dL 03/24/17 09:24 AST 32 units/L (5-40) 03/24/17 09:24 ALT 14 units/L (7-56) 03/24/17 09:24 Alkaline Phosphatase 129 units/L (35-129) 03/24/17 09:24 Total Protein 4.7 g/dL (6.3-8.2) L 03/24/17 09:24 Albumin 1.9 g/dL (3.9-5) L 03/24/17 09:24 Albumin/Globulin Ratio 0.7 % 03/24/17 09:24 Lipase 146 units/L (13-60) H 03/24/17 09:24 Blood Type O POSITIVE 03/24/17 09:26 Antibody Screen Negative 03/24/17 09:26 Crossmatch See Detail 03/24/17 09:26
[2017-03-26] MEDS: XIFAXAN PO SCH (22:46)
--- NOTE | 2017-03-26 23:45 | Operative Report ---
PROCEDURE PERFORMED: Esophagogastroduodenoscopy. PREOPERATIVE DIAGNOSIS: Gastrointestinal bleeding. POSTOPERATIVE DIAGNOSES: Cirrhosis, gastric varices, no evidence of esophageal varices. ENDOSCOPIST: Suraj Callahan MD INSTRUMENT: [employer] video endoscope. MEDICATIONS: MAC anesthesia by Anesthesia Services. COMPLICATIONS: No apparent complications. ESTIMATED BLOOD LOSS: None. SPECIMENS: None. IMPLANTS: None. LITHOGRAPHIC PLATE MAKER: None. CONDITION AT COMPLETION: Stable. TECHNIQUE: The patient was done as an emergency procedure given his history of recurrent bleeding and cirrhosis; he is in active delirium tremens and was unable to provide informed consent and there was no family available. After consent was obtained, the patient was placed in left lateral decubitus position. The above sedative medications were given. His vital signs remained stable throughout the procedure. The instrument was advanced from the mouth to the second portion of the duodenum under direct visualization. At that point, the bowel was insufflated and the endoscope was slowly withdrawn. FINDINGS: 1. No evidence of esophageal varices. 2. There were 2 clusters of isolated gastric varices in the proximal fundus; A. one appeared to have hemocystic spot, but there was no active hemorrhage. B. The gastric varices were not treated with banding as there was no obvious communication with the esophageal varices. 3. Moderate portal gastropathy. 4. The antrum and duodenum were visualized well with no evidence of ulcer disease or other explanation for gastrointestinal bleeding. 5. There was no blood and no blood clots in the upper GI tract. RECOMMENDATIONS: 1. We will get a CT scan with IV contrast to better visualize the splenic vein for isolated gastric varices; the patient has a TIPS that is patent on an ultrasound, but a poor quality. 2. Continue octreotide drip and Protonix twice daily therapy for 48 more hours. 3. Multivitamin and Xifaxan daily therapy; add a beta corrina when the patient is clinically improved. 4. Continue to transfuse with a p.r.n. hematocrit of less than 23. 5. Continue CIWA protocol for active delirium tremens. 6. Should the patient decompensate he is an appropriate candidate for hospice with active alcohol use and cirrhosis; he is not a candidate for transfer to a liver transplant facility. JOB# [id number] JUDY/NTS
[2017-03-27] MEDS: SandoSTATIN 500 MCG in NACL 0.9% 100 ML IV SCH ×2 (03:18→17:45)
[2017-03-27 07:53] LABS: Basophils % (Auto) 0.2 % (0.0-1.8); Eosinophils % (Auto) 3.5 % (0.0-4.3); Hematocrit 23.2 % (35.5-45.6); Hemoglobin 7.7 gm/dl (11.8-15.2); Mean Corpuscular HGB Conc 33 % (32-34); Mean Corpuscular Hemoglobin 29 pg (28-32); Mean Corpuscular Volume 87 fl (84-94); Platelet Count 113 K/mm3 (140-440); Red Blood Count 2.67 M/mm3 (3.65-5.03); Red Cell Distribution Width 17.6 % (13.2-15.2); White Blood Count 8.4 K/mm3 (4.5-11.0)
[2017-03-27 08:11] LABS: Anion Gap 16 mmol/L; BUN/Creatinine Ratio 27.77; Blood Urea Nitrogen 25 mg/dL (9-20); Calcium 6.9 mg/dL (8.4-10.2); Carbon Dioxide 17 mmol/L (22-30); Chloride 118.2 mmol/L (98-107); Glucose 64 mg/dL (75-100); Sodium 147 mmol/L (137-145)
[2017-03-27] MEDS: XIFAXAN PO SCH ×2 (09:58→22:25)
[2017-03-27] MEDS: THERAGRAN-M Tab PO SCH (09:58)
[2017-03-27] MEDS: PROTONIX IV SCH (11:32)
[2017-03-27] MEDS: HALDOL IM PRN (11:59)
--- NOTE | 2017-03-27 15:56 | Gastroenterology Progress Note ---
Assessment and Plan - Patient Problems (1) Alcohol withdrawal delirium Current Visit: Yes Status: Acute Plan to address problem: [place] withdrawl presently. Nutrition will need to be addressed if confusion does not clear in 24-48 hours. (2) GI (gastrointestinal bleed) Current Visit: Yes Status: Acute Qualifiers: GI bleed type/associated pathology: G Gastritis type: G Plan to address problem: No active bleeding overnight. (3) Liver cirrhosis, alcoholic Current Visit: Yes Status: Acute Qualifiers: Ascites presence: A Plan to address problem: Advanced disease. TIPS is patient and gastric varices are present endoscopically. He may benefit from IR procedure to embolize the gastric varices at some point. Subjective Date of service: 03/27/17 Principal diagnosis: GI bleed Interval history: The patient is confused and sedated. Objective - Constitutional Vitals: Temp Pulse Resp BP Pulse Ox 97.6 F 101 H 20 141/73 97 03/27/17 04:20 03/27/17 08:26 03/27/17 04:20 03/27/17 04:20 03/27/17 08:26 General appearance: mild distress - EENT ENT: hearing intact, clear oral mucosa - Neck Neck: supple, normal ROM - Respiratory Respiratory effort: normal Respiratory: bilateral: CTA - Cardiovascular Rhythm: regular - Gastrointestinal General gastrointestinal: Present: soft, non-tender, non-distended, normal bowel sounds - Neurologic Neurological: disoriented - Labs CBC & Chem 7: 03/27/17 06:51 03/27/17 06:51 Labs: Laboratory Results - last 24 hr 03/27/17 03/27/17 06:51 06:51 WBC 8.4 RBC 2.67 L Hgb 7.7 L Hct 23.2 L MCV 87 MCH 29 MCHC 33 RDW 17.6 H Plt Count 113 L Lymph % (Auto) 8.3 L [place] % (Auto) 9.0 H Eos % (Auto) 3.5 Baso % (Auto) 0.2 Lymph # 0.7 L [place] # 0.8 Eos # 0.3 Baso # 0.0 Seg Neutrophils % 79.0 H Seg Neutrophils # 6.6 Sodium 147 H Potassium 4.0 Chloride 118.2 H Carbon Dioxide 17 L Anion Gap 16 BUN 25 H Creatinine 0.9 Estimated GFR > 60 BUN/Creatinine Ratio 27.77 Glucose 64 L Calcium 6.9 L
[2017-03-27] MEDS: NACL 0.9% 1000 ML 1,000 ML IV SCH (17:51)
--- NOTE | 2017-03-27 20:02 | Progress Note ---
Assessment and Plan Assessment and plan: 61 yo male with alcoholic cirrhosis, s/p TIPS, presented for weakness, hematemesis, black tarry stools and was found to have severe blood loss anemia 1. Upper GI bleed Given his underlying condition of cirrhosis status post TIPS and significant blood loss, was taken emergently to GI lab and underwent endoscopy which revealed no esophageal varices, but moderate varices in the cardia, gastric curvature and fundus obscured by old blood 03/24 Started on octreotide and PPI drips 03/26 second look endoscopy to exclude additional pathology obscured by old blood ; showed no esophageal varices, 2 clusters of isolated gastric varices in the proximal fundus, moderate portal gastropathy TIPS patent per US but poor quality, CT abd w/contrast ordered GI recommended to continue Octreotide and PPI drips for 48 more hours 2. Severe acute blood loss anemia Hgb 3.4 on admission Transfused 6 units PRBCs Hemoglobin up to 8, but started to slowly trend down Monitor H&H closely 3. Hypotension Secondary to hypovolemia S/p PRBCs, IV fluids 4. Metabolic acidosis Treatunderlying conditions 5. Coagulopathy Secondary to cirrhosis 6. Pancreatitis NPO, IV fluids, pain control medication 7. Acute toxic metabolic encephalopathy Hepatitic encephalopathy/DTs Lactulose, Rifaximin, BZ 8. Severe protein caloric malnutrition Diet supplementation when able to take by mouth 8. Alcohol abuse/DTs CIWA protocol Banana bag 9. DVT prophylaxis SCDs. No pharmacological agent given severe anemia History Interval history: agitated, confused Hospitalist Physical - Constitutional Vitals: Temp Pulse Resp BP Pulse Ox 97.2 F L 112 H 24 154/77 99 03/27/17 19:47 03/27/17 19:47 03/27/17 19:47 03/27/17 19:47 03/27/17 19:47 General appearance: Present: mild distress, disheveled - EENT Eyes: Present: PERRL, EOM intact, scleral icterus. Absent: conjunctival injection - Neck Neck: Present: supple. Absent: enlarged thyroid, masses or JVD - Respiratory Respiratory effort: other (tachypneic) Respiratory: bilateral: CTA, negative: rhonchi, wheezing - Cardiovascular Rhythm: other (tachyardic) Heart Sounds: Present: S1 & S2. Absent: systolic murmur - Extremities Extremities: no ischemia - Abdominal General gastrointestinal: soft, non-tender, non-distended, normal bowel sounds - Psychiatric Psychiatric: no appropriate mood/affect, no intact judgment & insight, no memory intact, agitated - Neurologic Neurologic: moves all extremities Results - Labs CBC & Chem 7: 03/28/17 17:33 03/28/17 14:42 Labs: Laboratory Last Values WBC 8.4 K/mm3 (4.5-11.0) 03/27/17 06:51 RBC 2.67 M/mm3 (3.65-5.03) L 03/27/17 06:51 Hgb 7.7 gm/dl (11.8-15.2) L 03/27/17 06:51 Hct 23.2 % (35.5-45.6) L 03/27/17 06:51 MCV 87 fl (84-94) 03/27/17 06:51 MCH 29 pg (28-32) 03/27/17 06:51 MCHC 33 % (32-34) 03/27/17 06:51 RDW 17.6 % (13.2-15.2) H 03/27/17 06:51 Plt Count 113 K/mm3 (140-440) L 03/27/17 06:51 Lymph % (Auto) 8.3 % (13.4-35.0) L 03/27/17 06:51 [place] % (Auto) 9.0 % (0.0-7.3) H 03/27/17 06:51 Eos % (Auto) 3.5 % (0.0-4.3) 03/27/17 06:51 Baso % (Auto) 0.2 % (0.0-1.8) 03/27/17 06:51 Lymph # 0.7 K/mm3 (1.2-5.4) L 03/27/17 06:51 [place] # 0.8 K/mm3 (0.0-0.8) 03/27/17 06:51 Eos # 0.3 K/mm3 (0.0-0.4) 03/27/17 06:51 Baso # 0.0 K/mm3 (0.0-0.1) 03/27/17 06:51 Seg Neutrophils % 79.0 % (40.0-70.0) H 03/27/17 06:51 Seg Neutrophils # 6.6 K/mm3 (1.8-7.7) 03/27/17 06:51 PT 19.2 Sec. (12.2-14.9) H 03/24/17 09:24 INR 1.62 (0.87-1.13) H 03/24/17 09:24 APTT 34.8 Sec. (24.2-36.6) 03/24/17 09:24 Sodium 147 mmol/L (137-145) H 03/27/17 06:51 Potassium 4.0 mmol/L (3.6-5.0) 03/27/17 06:51 Chloride 118.2 mmol/L (98-107) H 03/27/17 06:51 Carbon Dioxide 17 mmol/L (22-30) L 03/27/17 06:51 Anion Gap 16 mmol/L 03/27/17 06:51 BUN 25 mg/dL (9-20) H 03/27/17 06:51 Creatinine 0.9 mg/dL (0.8-1.5) 03/27/17 06:51 Estimated GFR > 60 ml/min 03/27/17 06:51 BUN/Creatinine Ratio 27.77 % 03/27/17 06:51 Glucose 64 mg/dL (75-100) L 03/27/17 06:51 Calcium 6.9 mg/dL (8.4-10.2) L 03/27/17 06:51 Total Bilirubin 1.50 mg/dL (0.1-1.2) H 03/24/17 09:24 Direct Bilirubin 0.6 mg/dL (0-0.2) H 03/24/17 09:24 Indirect Bilirubin 0.9 mg/dL 03/24/17 09:24 AST 32 units/L (5-40) 03/24/17 09:24 ALT 14 units/L (7-56) 03/24/17 09:24 Alkaline Phosphatase 129 units/L (35-129) 03/24/17 09:24 Total Protein 4.7 g/dL (6.3-8.2) L 03/24/17 09:24 Albumin 1.9 g/dL (3.9-5) L 03/24/17 09:24 Albumin/Globulin Ratio 0.7 % 03/24/17 09:24 Lipase 146 units/L (13-60) H 03/24/17 09:24 Blood Type O POSITIVE 03/24/17 09:26 Antibody Screen Negative 03/24/17 09:26 Crossmatch See Detail 03/24/17 09:26
[2017-03-27] MEDS: VITAMIN B-1 100 MG, FOLVITE 1 MG, INFUVITE 10 ML in NACL 0.9% 1000 ML 1,000 ML IV SCH (21:53)
[2017-03-28] MEDS: SandoSTATIN 500 MCG in NACL 0.9% 100 ML IV SCH ×2 (03:41→22:53)
[2017-03-28 05:53] LABS: Basophils % (Auto) 0.2 % (0.0-1.8); Eosinophils % (Auto) 0.5 % (0.0-4.3); Hematocrit 22.5 % (35.5-45.6); Hemoglobin 7.3 gm/dl (11.8-15.2); Mean Corpuscular HGB Conc 33 % (32-34); Mean Corpuscular Hemoglobin 29 pg (28-32); Mean Corpuscular Volume 89 fl (84-94); Platelet Count 129 K/mm3 (140-440); Red Blood Count 2.51 M/mm3 (3.65-5.03); Red Cell Distribution Width 18.1 % (13.2-15.2)
[2017-03-28 06:33] LABS: Anion Gap 20 mmol/L; BUN/Creatinine Ratio 18.33; Blood Urea Nitrogen 22 mg/dL (9-20); Calcium 6.8 mg/dL (8.4-10.2); Carbon Dioxide 14 mmol/L (22-30); Glucose 104 mg/dL (75-100); Lipase 13 units/L (13-60); Potassium 4.1 mmol/L (3.6-5.0); Sodium 149 mmol/L (137-145)
[2017-03-28] MEDS: XIFAXAN PO SCH ×2 (11:58→23:26)
[2017-03-28] MEDS: THERAGRAN-M Tab PO SCH (11:58)
[2017-03-28] MEDS: PROTONIX IV SCH (11:59)
[2017-03-28] MEDS ORDERED: VITAMIN B-1 100 MG, FOLVITE 1 MG, INFUVITE 10 ML in NACL 0.9% 1000 ML 1,000 ML IV ONE (12:23)
[2017-03-28] MEDS ORDERED: SIMPLE SYRUP FEEDTUBE PRN ×4 (12:24→12:39)
[2017-03-28] MEDS ORDERED: PANCREAZE DR 10,500 UNIT FEEDTUBE PRN ×2 (12:24→12:39)
[2017-03-28] MEDS ORDERED: SODIUM BICARBONATE FEEDTUBE PRN ×2 (12:24→12:39)
[2017-03-28] MEDS: CEPHULAC PO SCH ×2 (13:44→17:38)
--- NOTE | 2017-03-28 13:54 | Gastroenterology Progress Note ---
Assessment and Plan - Patient Problems (1) Alcohol withdrawal delirium Current Visit: Yes Status: Acute Plan to address problem: [place] withdrawn syndrome still. (2) GI (gastrointestinal bleed) Current Visit: Yes Status: Acute Qualifiers: GI bleed type/associated pathology: G Gastritis type: G Plan to address problem: May have subacute bleeding still. H&H is drifting downward and passed more melenic stool today. He has gastric varices, but no esophageal varices. He is not a candidate for any endoscopic therapeutics for this. Still on octreotide drip. Will ask IR to see him to consider embolization of varices. The TIPS is patent by doppler u/s study. Repeat H&H now pending. Will need further transfusion. (3) Liver cirrhosis, alcoholic Current Visit: Yes Status: Acute Qualifiers: Ascites presence: A Subjective Date of service: 03/28/17 Principal diagnosis: GI bleed Interval history: Confused and non verbal Objective - Exam Narrative Exam: passing tarry stool per nurse report. - Constitutional Vitals: Temp Pulse Resp BP Pulse Ox 98.5 F 98 H 20 142/72 89 03/28/17 04:50 03/28/17 10:00 03/28/17 04:50 03/28/17 04:50 03/28/17 04:50 General appearance: mild distress, disheveled - Neck Neck: supple, normal ROM - Respiratory Respiratory effort: normal Respiratory: bilateral: CTA - Cardiovascular Rhythm: regular - Gastrointestinal General gastrointestinal: Present: soft, non-tender, non-distended, normal bowel sounds - Neurologic Neurological: disoriented, strength equal bilaterally - Labs CBC & Chem 7: 03/28/17 04:59 03/28/17 04:59 Labs: Laboratory Results - last 24 hr 03/28/17 03/28/17 03/28/17 04:59 04:59 04:59 WBC 11.0 RBC 2.51 L Hgb 7.3 L Hct 22.5 L MCV 89 MCH 29 MCHC 33 RDW 18.1 H Plt Count 129 L Lymph % (Auto) 4.0 L [place] % (Auto) 6.4 Eos % (Auto) 0.5 Baso % (Auto) 0.2 Lymph # 0.4 L [place] # 0.7 Eos # 0.1 Baso # 0.0 Seg Neutrophils % 88.9 H Seg Neutrophils # 9.7 H Sodium 149 H Potassium 4.1 Chloride 119.0 H Carbon Dioxide 14 L Anion Gap 20 BUN 22 H Creatinine 1.2 Estimated GFR > 60 BUN/Creatinine Ratio 18.33 Glucose 104 H Calcium 6.8 L Magnesium 1.90 Ammonia 103.0 H Lipase 13
--- NOTE | 2017-03-28 14:07 | Consultation ---
History of Present Illness - Reason for Consult Consult date: 03/28/17 GI bleeding - History of Present Illness 61 year old male with a history of alcoholic cirrhosis with active alcohol abuse , narcotic dependence, DTs, COPD, depression, and chronic osteomyelitis who presented to the ER with complaints of weakness, hematemesis, melena, and epigastric pain with anemia on presentation. Pt reports melena x 3 to 4 months and nausea and vomiting with bright red blood and coffee ground emesis x 1 day upon admission. His last EGD was approximately 3 weeks ago in [facility], and his EGD today demonstrating no esophageal varices , but blood obscuring the stomach concerning for gastric varices. He underwent TIPS procedure in [place] several months ago for ascites management. No hx of HCV or HBV. Denies fever, abd pain, jaundice, diarrhea, constipation, or hematochezia. This history was obtained at time of admission. The patient is currently not able to respond, in a comatose like state, with random movements of different parts of his body. He has not responded multiple days per nurse. No family is available for consent. No contacts are available for consent. The patient had melena this morning and therefore interventional radiology/vascular was consult. Blood pressure was 136/80, heart rate 105, 99% O2 sat. labs are currently pending. Past History Past Medical History: COPD, liver disease, other (alcoholic cirrhosis, ascites, narcotic dependence, ETOH abuse, DTs, depression, chronic osteomyelitis) Past Surgical History: total hip replacement, Other (shoulder, TIPS) Social history: alcohol abuse, prescription drug abuse. denies: smoking Family history: hypertension Medications and Allergies Allergies Allergy/AdvReac Type Severity Reaction Status Date / Time Penicillins AdvReac Rash Verified 03/24/17 19:39 Home Medications Medication Instructions Recorded Confirmed Last Taken Type Ibuprofen [Advil 100 MG tab] 200 mg PO Q6H PRN 03/24/17 03/24/17 03/23/17 History Active Meds: Active Medications Lipase/Protease/Amylase ([place] 10,500 Unit) 1 each FEEDTUBE PRN PRN PRN Reason: For Clogged Feeding Tube Chlordiazepoxide HCl (Librium) 25 mg PO Q6H PRN PRN Reason: Anxiety Chlordiazepoxide HCl (Librium) 25 mg PO QID ELIJAH Haloperidol Lactate (Haldol) 5 mg IM Q2H PRN PRN Reason: Agitation Last Admin: 03/27/17 11:59 Dose: 5 mg Octreotide Acetate 500 mcg/ (Sodium Chloride) 101 mls @ 10.1 mls/hr IV TITR ELIJAH ; 50 MCG/HR PRN Reason: Protocol Last Admin: 03/28/17 03:41 Dose: 50 mcg/hr, 10.1 mls/hr Thiamine HCl 100 mg/ Folic Acid 1 mg/ Multivitamins/Minerals 10 ml/ Sodium Chloride 1,011.2 mls @ 126.4 mls/hr IV Q24H [facility] Last Admin: 03/27/17 21:53 Dose: 126.4 mls/hr Sodium Chloride (Nacl 0.9% 1000 Ml) 1,000 mls @ 50 mls/hr IV DIRECT [facility] Last Admin: 03/27/17 17:51 Dose: 50 mls/hr Thiamine HCl 100 mg/ Folic Acid 1 mg/ Multivitamins/Minerals 10 ml/ Sodium Chloride 1,011.2 mls @ 250 mls/hr IV ONCE ONE Stop: 03/28/17 16:25 Lactulose (Cephulac) 20 gm PO BID PRN PRN Reason: Constipation Stop: 03/28/17 22:01 Lactulose (Cephulac) 20 gm PO Q6HR [facility] Last Admin: 03/28/17 13:44 Dose: Not Given Lorazepam (Ativan) 4 mg IV Q1H PRN PRN Reason: CIWA-Ar 8-15 Last Admin: 03/26/17 22:34 Dose: 4 mg Magnesium Hydroxide (Milk Of Magnesia) 30 ml PO Q4H PRN PRN Reason: Constipation Multivitamins/Minerals (Theragran-M Tab) 1 each PO QDAY [facility] Last Admin: 03/28/17 11:58 Dose: Not Given Pantoprazole Sodium (Protonix) 40 mg IV QDAY [facility] Last Admin: 03/28/17 11:59 Dose: 40 mg Rifaximin (Xifaxan) 550 mg PO BID [facility] Last Admin: 03/28/17 11:58 Dose: Not Given Simple Syrup (Simple Syrup) 15 ml FEEDTUBE PRN PRN PRN Reason: Hypoglycemia Simple Syrup (Simple Syrup) 30 ml FEEDTUBE PRN PRN PRN Reason: Hypoglycemia Sodium Bicarbonate (Sodium Bicarbonate) 325 mg FEEDTUBE PRN PRN PRN Reason: For Clogged Feeding Tube Review of Systems ROS unobtainable: due to mental status Exam - Constitutional Vitals: Temp Pulse Resp BP Pulse Ox 97.5 F L 95 H 24 137/69 100 03/28/17 13:58 03/28/17 13:58 03/28/17 13:58 03/28/17 13:58 03/28/17 13:58 General appearance: Present: other (nonresponsive, but moving randomly) - EENT ENT: other (extremely poor dentition) - Respiratory Respiratory effort: normal - Psychiatric Psychiatric: cooperative Results - Labs CBC & Chem 7: 03/28/17 04:59 03/28/17 04:59 Labs: Abnormal lab results 03/28/17 03/28/17 03/28/17 Range/Units 04:59 04:59 04:59 RBC 2.51 L (3.65-5.03) M/mm3 Hgb 7.3 L (11.8-15.2) gm/dl Hct 22.5 L (35.5-45.6) % RDW 18.1 H (13.2-15.2) % Plt Count 129 L (140-440) K/mm3 Lymph % (Auto) 4.0 L (13.4-35.0) % Lymph # 0.4 L (1.2-5.4) K/mm3 Seg Neutrophils % 88.9 H (40.0-70.0) % Seg Neutrophils # 9.7 H (1.8-7.7) K/mm3 Sodium 149 H (137-145) mmol/L Chloride 119.0 H (98-107) mmol/L Carbon Dioxide 14 L (22-30) mmol/L BUN 22 H (9-20) mg/dL Glucose 104 H (75-100) mg/dL Calcium 6.8 L (8.4-10.2) mg/dL Ammonia 103.0 H (25-60) umol/L Assessment and Plan 61 year old male with a history of alcoholic cirrhosis with active alcohol abuse , narcotic dependence, DTs, COPD, depression, and chronic osteomyelitis who presented to the ER with complaints of weakness, hematemesis, melena, and epigastric pain with anemia on presentation. Awaiting labs. Patient is currently mildly tachycardic. Large amount of melena per nurse. The patient originally presented to the hospital with melena and hematemesis and had a TIPS placed in [place]. His TIPS ultrasound did not include velocities, and given his symptomatic GI bleeding, I'm concerned that he might have TIPS restenosis. If he does not have TIPS restenosis, then coil embolization of his gastric varices from a trans-tips approach can considered. Complicating his treatment as his active alcohol withdrawal. The patient is in a comatose like-state, but moves his body randomly. There is no consentable republican available. Discussed the case with Dr. Ivey, and if the patient requires interventional approach to control bleeding, we both believe this is medically necessary to save his life. 2 physician consent obtained. Awaiting labs to decide upon treatment course.
[2017-03-28] MEDS ORDERED: NACL 0.9% 500 ML 500 ML IV ONE (14:26)
[2017-03-28 15:02] LABS: Hematocrit 22.4 % (35.5-45.6); Hemoglobin 7.2 gm/dl (11.8-15.2); Mean Corpuscular HGB Conc 32 % (32-34); Mean Corpuscular Hemoglobin 29 pg (28-32); Mean Corpuscular Volume 90 fl (84-94); Platelet Count 117 K/mm3 (140-440); Red Cell Distribution Width 18.2 % (13.2-15.2); White Blood Count 11.6 K/mm3 (4.5-11.0)
[2017-03-28 15:13] LABS: INR 1.6 (0.87-1.13); Partial Thromboplastin Time 33.2 Sec. (24.2-36.6)
[2017-03-28 15:23] LABS: Anion Gap 19 mmol/L; Blood Urea Nitrogen 23 mg/dL (9-20); Calcium 6.9 mg/dL (8.4-10.2); Carbon Dioxide 14 mmol/L (22-30); Chloride 121.1 mmol/L (98-107); Glucose 105 mg/dL (75-100); Sodium 150 mmol/L (137-145)
[2017-03-28] MEDS: LIBRIUM PO SCH ×3 (16:09→23:25)
[2017-03-28 18:26] LABS: Hemoglobin 7.3 gm/dl (11.8-15.2)
--- NOTE | 2017-03-28 19:29 | Progress Note ---
Assessment and Plan Assessment and plan: 61 yo male with alcoholic cirrhosis, s/p TIPS, presented for weakness, hematemesis, black tarry stools and was found to have severe blood loss anemia 1. Upper GI bleed Given his underlying condition of cirrhosis status post TIPS and significant blood loss, was taken emergently to GI lab and underwent endoscopy which revealed no esophageal varices, but moderate varices in the cardia, gastric curvature and fundus obscured by old blood 03/24 Started on octreotide and PPI drips 03/26 second look endoscopy to exclude additional pathology obscured by old blood ; showed no esophageal varices, 2 clusters of isolated gastric varices in the proximal fundus, moderate portal gastropathy TIPS patent per US but poor quality, CT abd w/contrast ordered, but unable to be obtained GI recommended to continue Octreotide and PPI drips IR consulted for possible embolization of gastric varices 2. Severe acute blood loss anemia Hgb 3.4 on admission Transfused 6 units PRBCs Hemoglobin up to 8, but started to slowly trend down, 7.3 today As continues to have melena, will transfuse 2 more units and monitor H&H closely 3. Hypotension Secondary to hypovolemia S/p PRBCs, IV fluids BP wnl now 4. Metabolic acidosis Treat underlying conditions 5. Coagulopathy Secondary to cirrhosis 6. Pancreatitis NPO, IV fluids, pain control medication 7. Acute toxic metabolic encephalopathy Hepatitic encephalopathy/DTs Lactulose, Rifaximin, BZ 8. Severe protein caloric malnutrition Diet supplementation when able to take by mouth 8. Alcohol abuse/DTs CIWA protocol 9. DVT prophylaxis SCDs. No pharmacological agent given severe anemia History Interval history: large amount melanotic stool this morning; in withdrawal, agitated, confused, nonverbal Hospitalist Physical - Constitutional Vitals: Temp Pulse Resp BP Pulse Ox 97.5 F L 95 H 24 137/69 100 03/28/17 13:58 03/28/17 13:58 03/28/17 13:58 03/28/17 13:58 03/28/17 13:58 General appearance: Present: severe distress, cachectic, other (nonresponsive, but moving randomly) - EENT Eyes: Present: PERRL - Neck Neck: Present: supple. Absent: enlarged thyroid, masses or JVD - Respiratory Respiratory effort: other (tachypneic) Respiratory: bilateral: diminished, negative: rhonchi, wheezing - Cardiovascular Rhythm: other (tachycardic) Heart Sounds: Present: S1 & S2. Absent: systolic murmur - Extremities Extremities: no ischemia - Abdominal General gastrointestinal: soft, non-tender, non-distended, normal bowel sounds - Psychiatric Psychiatric: other (nonverbal, agitated, in restraints) - Neurologic Neurologic: moves all extremities Results - Labs CBC & Chem 7: 03/28/17 17:33 03/28/17 14:42 Labs: Laboratory Last Values WBC 11.6 K/mm3 (4.5-11.0) H 03/28/17 14:42 RBC 2.50 M/mm3 (3.65-5.03) L 03/28/17 14:42 Hgb 7.3 gm/dl (11.8-15.2) L 03/28/17 17:33 Hct 23.0 % (35.5-45.6) L 03/28/17 17:33 MCV 90 fl (84-94) 03/28/17 14:42 MCH 29 pg (28-32) 03/28/17 14:42 MCHC 32 % (32-34) 03/28/17 14:42 RDW 18.2 % (13.2-15.2) H 03/28/17 14:42 Plt Count 117 K/mm3 (140-440) L 03/28/17 14:42 Lymph % (Auto) 4.0 % (13.4-35.0) L 03/28/17 04:59 [place] % (Auto) 6.4 % (0.0-7.3) 03/28/17 04:59 Eos % (Auto) 0.5 % (0.0-4.3) 03/28/17 04:59 Baso % (Auto) 0.2 % (0.0-1.8) 03/28/17 04:59 Lymph # 0.4 K/mm3 (1.2-5.4) L 03/28/17 04:59 [place] # 0.7 K/mm3 (0.0-0.8) 03/28/17 04:59 Eos # 0.1 K/mm3 (0.0-0.4) 03/28/17 04:59 Baso # 0.0 K/mm3 (0.0-0.1) 03/28/17 04:59 Seg Neutrophils % 88.9 % (40.0-70.0) H 03/28/17 04:59 Seg Neutrophils # 9.7 K/mm3 (1.8-7.7) H 03/28/17 04:59 PT 19.8 Sec. (12.2-14.9) H 03/28/17 14:42 INR 1.60 (0.87-1.13) H 03/28/17 14:42 APTT 33.2 Sec. (24.2-36.6) 03/28/17 14:42 Sodium 150 mmol/L (137-145) H 03/28/17 14:42 Potassium 4.0 mmol/L (3.6-5.0) 03/28/17 14:42 Chloride 121.1 mmol/L (98-107) H 03/28/17 14:42 Carbon Dioxide 14 mmol/L (22-30) L 03/28/17 14:42 Anion Gap 19 mmol/L 03/28/17 14:42 BUN 23 mg/dL (9-20) H 03/28/17 14:42 Creatinine 1.1 mg/dL (0.8-1.5) 03/28/17 14:42 Estimated GFR > 60 ml/min 03/28/17 14:42 BUN/Creatinine Ratio 20.90 % 03/28/17 14:42 Glucose 105 mg/dL (75-100) H 03/28/17 14:42 Calcium 6.9 mg/dL (8.4-10.2) L 03/28/17 14:42 Magnesium 1.90 mg/dL (1.7-2.3) 03/28/17 04:59 Total Bilirubin 1.50 mg/dL (0.1-1.2) H 03/24/17 09:24 Direct Bilirubin 0.6 mg/dL (0-0.2) H 03/24/17 09:24 Indirect Bilirubin 0.9 mg/dL 03/24/17 09:24 AST 32 units/L (5-40) 03/24/17 09:24 ALT 14 units/L (7-56) 03/24/17 09:24 Alkaline Phosphatase 129 units/L (35-129) 03/24/17 09:24 Ammonia 103.0 umol/L (25-60) H 03/28/17 04:59 Total Protein 4.7 g/dL (6.3-8.2) L 03/24/17 09:24 Albumin 1.9 g/dL (3.9-5) L 03/24/17 09:24 Albumin/Globulin Ratio 0.7 % 03/24/17 09:24 Lipase 13 units/L (13-60) 03/28/17 04:59 Blood Type O POSITIVE 03/28/17 14:53 Antibody Screen Negative 03/28/17 14:53 Crossmatch See Detail 03/28/17 14:53
[2017-03-29] MEDS: CEPHULAC PO SCH ×4 (05:46→18:53)
[2017-03-29] MEDS: THERAGRAN-M Tab PO SCH (10:20)
[2017-03-29] MEDS: PROTONIX IV SCH (10:20)
[2017-03-29] MEDS: SandoSTATIN 500 MCG in NACL 0.9% 100 ML IV SCH ×2 (10:20→21:30)
[2017-03-29] MEDS: LIBRIUM PO SCH ×4 (10:20→22:48)
[2017-03-29] MEDS: XIFAXAN PO SCH ×2 (10:20→22:51)
--- NOTE | 2017-03-29 10:30 | Gastroenterology Progress Note ---
Assessment and Plan - Patient Problems (1) Alcohol withdrawal delirium Current Visit: Yes Status: Acute Plan to address problem: Withdrawl may be slightly better. Still globally confused and non verbal. (2) GI (gastrointestinal bleed) Current Visit: Yes Status: Acute Qualifiers: GI bleed type/associated pathology: G Gastritis type: G Plan to address problem: No active bleeding overnight. H&H was relatively stable although somewhat decreased. No brisk bleeding, but probably continued mild subacute bleed. Transfusion in progress. Await f/u labs. Eventual embolization of gastric varices per Dr. Donaldson. (3) Liver cirrhosis, alcoholic Current Visit: Yes Status: Acute Qualifiers: Ascites presence: A Subjective Date of service: 03/29/17 Principal diagnosis: GI bleed, cirrhosis, Interval history: Non verbal, moderate agitation. Confused. Objective - Constitutional Vitals: Temp Pulse Resp BP Pulse Ox 99.2 F 102 H 18 138/68 96 03/29/17 08:00 03/29/17 08:00 03/29/17 08:00 03/29/17 08:00 03/29/17 08:00 General appearance: mild distress - EENT ENT: hearing intact - Neck Neck: supple, normal ROM - Respiratory Respiratory effort: normal Respiratory: bilateral: CTA - Cardiovascular Rhythm: regular - Gastrointestinal General gastrointestinal: Present: soft, non-tender, non-distended, normal bowel sounds - Neurologic Neurological: disoriented - Labs CBC & Chem 7: 03/28/17 17:33 03/28/17 14:42 Labs: Laboratory Results - last 24 hr 03/28/17 03/28/17 03/28/17 14:42 14:42 14:42 WBC 11.6 H RBC 2.50 L Hgb 7.2 L Hct 22.4 L MCV 90 MCH 29 MCHC 32 RDW 18.2 H Plt Count 117 L PT 19.8 H INR 1.60 H APTT 33.2 Sodium 150 H Potassium 4.0 Chloride 121.1 H Carbon Dioxide 14 L Anion Gap 19 BUN 23 H Creatinine 1.1 Estimated GFR > 60 BUN/Creatinine Ratio 20.90 Glucose 105 H POC Glucose Calcium 6.9 L Blood Type Antibody Screen Crossmatch 03/28/17 03/28/17 03/29/17 14:53 17:33 01:23 WBC RBC Hgb 7.3 L Hct 23.0 L MCV MCH MCHC RDW Plt Count PT INR APTT Sodium Potassium Chloride Carbon Dioxide Anion Gap BUN Creatinine Estimated GFR BUN/Creatinine Ratio Glucose POC Glucose 98 Calcium Blood Type O POSITIVE Antibody Screen Negative Crossmatch See Detail
--- NOTE | 2017-03-29 11:18 | Progress Note ---
Assessment and Plan Patient will ultimately need evaluation of his TIPS and variceal embolization. We will allow him to improve clinically prior to this treatment. Subjective Date of service: 03/29/17 Principal diagnosis: GI bleed, cirrhosis, Interval history: Patient still in withdrawal. H&H appear stable. Objective - Constitutional Vitals: Vital Signs - 12hr 03/29/17 03/29/17 03/29/17 01:02 01:35 01:49 Temperature 97.8 F 98.3 F 98.4 F Pulse Rate 100 H 98 H 98 H Respiratory 24 24 24 Rate Blood Pressure 138/66 141/68 Blood Pressure 144/66 [Left] O2 Sat by Pulse 99 100 98 Oximetry 03/29/17 03/29/17 03/29/17 02:32 03:01 03:30 Temperature 98.6 F 98.5 F 98.6 F Pulse Rate 100 H 101 H 98 H Respiratory 22 22 22 Rate Blood Pressure 135/77 146/64 140/71 Blood Pressure [Left] O2 Sat by Pulse 100 99 100 Oximetry 03/29/17 03/29/17 03/29/17 04:00 08:00 11:00 Temperature 98.5 F 99.2 F Pulse Rate 98 H 102 H 105 H Respiratory 20 18 Rate Blood Pressure 138/66 Blood Pressure 138/68 [Left] O2 Sat by Pulse 100 96 Oximetry General appearance: Present: disheveled - Respiratory Respiratory effort: normal - Psychiatric Psychiatric: other (no purposeful movement) - Labs CBC & Chem 7: 03/28/17 17:33 03/28/17 14:42 Labs: Abnormal lab results 03/28/17 03/28/17 03/28/17 Range/Units 14:42 14:42 14:42 WBC 11.6 H (4.5-11.0) K/mm3 RBC 2.50 L (3.65-5.03) M/mm3 Hgb 7.2 L (11.8-15.2) gm/dl Hct 22.4 L (35.5-45.6) % RDW 18.2 H (13.2-15.2) % Plt Count 117 L (140-440) K/mm3 PT 19.8 H (12.2-14.9) Sec. INR 1.60 H (0.87-1.13) Sodium 150 H (137-145) mmol/L Chloride 121.1 H (98-107) mmol/L Carbon Dioxide 14 L (22-30) mmol/L BUN 23 H (9-20) mg/dL Glucose 105 H (75-100) mg/dL Calcium 6.9 L (8.4-10.2) mg/dL Crossmatch 03/28/17 03/28/17 Range/Units 14:53 17:33 WBC (4.5-11.0) K/mm3 RBC (3.65-5.03) M/mm3 Hgb 7.3 L (11.8-15.2) gm/dl Hct 23.0 L (35.5-45.6) % RDW (13.2-15.2) % Plt Count (140-440) K/mm3 PT (12.2-14.9) Sec. INR (0.87-1.13) Sodium (137-145) mmol/L Chloride (98-107) mmol/L Carbon Dioxide (22-30) mmol/L BUN (9-20) mg/dL Glucose (75-100) mg/dL Calcium (8.4-10.2) mg/dL Crossmatch See Detail
--- NOTE | 2017-03-29 21:39 | Progress Note ---
Assessment and Plan Assessment and plan: 61 yo male with alcoholic cirrhosis, s/p TIPS, presented for weakness, hematemesis, black tarry stools and was found to have severe blood loss anemia 1. Upper GI bleed Given his underlying condition of cirrhosis status post TIPS and significant blood loss, was taken emergently to GI lab and underwent endoscopy which revealed no esophageal varices, but moderate varices in the cardia, gastric curvature and fundus obscured by old blood 03/24 Started on octreotide and PPI drips 03/26 second look endoscopy to exclude additional pathology obscured by old blood ; showed no esophageal varices, 2 clusters of isolated gastric varices in the proximal fundus, moderate portal gastropathy TIPS patent per US but poor quality, CT abd w/contrast ordered, but unable to be obtained Still on Octreotide drip and iv PPI GI following IR plans TIPS revision and embolization of gastric varices when more stable 2. Severe acute blood loss anemia Hgb 3.4 on admission Transfused 6 units PRBCs Hemoglobin up to 8, but started to slowly trend down As he continued to have melena, 2 more units transfused Monitor H&H closely 3. Hypotension Secondary to hypovolemia S/p PRBCs, IV fluids BP wnl now 4. Metabolic acidosis Treat underlying conditions 5. Coagulopathy Secondary to cirrhosis 6. Pancreatitis NPO, IV fluids, pain control medication 7. Acute toxic metabolic encephalopathy Hepatitic encephalopathy/DTs Lactulose, Rifaximin, BZ 8. Severe protein caloric malnutrition Diet supplementation when able to take by mouth Meanwhile consider TF through NG if GI agrees 8. Alcohol abuse/DTs CIWA protocol 9. DVT prophylaxis SCDs. No pharmacological agent given severe anemia History Interval history: lno further bleeding, receiving transfusion; still confused and nonverbal, agitated at times Hospitalist Physical - Constitutional Vitals: Temp Pulse Resp BP Pulse Ox 98.7 F 101 H 24 124/45 100 03/29/17 12:06 03/29/17 12:00 03/29/17 13:47 03/29/17 13:47 03/29/17 12:00 General appearance: Present: mild distress, cachectic, other (nonresponsive, but moving randomly) - EENT Eyes: Present: PERRL, EOM intact - Neck Neck: Present: supple. Absent: enlarged thyroid, masses or JVD - Respiratory Respiratory effort: other (tachypneic) - Cardiovascular Rhythm: other (tachycardic) Heart Sounds: Present: S1 & S2. Absent: systolic murmur - Extremities Extremities: no ischemia Extremity abnormal: other (multiple leg ulcers) - Abdominal General gastrointestinal: soft, non-tender, non-distended, normal bowel sounds - Psychiatric Psychiatric: no appropriate mood/affect, no intact judgment & insight, agitated - Neurologic Neurologic: moves all extremities Results - Labs CBC & Chem 7: 03/28/17 17:33 03/28/17 14:42 Labs: Laboratory Last Values WBC 11.6 K/mm3 (4.5-11.0) H 03/28/17 14:42 RBC 2.50 M/mm3 (3.65-5.03) L 03/28/17 14:42 Hgb 7.3 gm/dl (11.8-15.2) L 03/28/17 17:33 Hct 23.0 % (35.5-45.6) L 03/28/17 17:33 MCV 90 fl (84-94) 03/28/17 14:42 MCH 29 pg (28-32) 03/28/17 14:42 MCHC 32 % (32-34) 03/28/17 14:42 RDW 18.2 % (13.2-15.2) H 03/28/17 14:42 Plt Count 117 K/mm3 (140-440) L 03/28/17 14:42 Lymph % (Auto) 4.0 % (13.4-35.0) L 03/28/17 04:59 [place] % (Auto) 6.4 % (0.0-7.3) 03/28/17 04:59 Eos % (Auto) 0.5 % (0.0-4.3) 03/28/17 04:59 Baso % (Auto) 0.2 % (0.0-1.8) 03/28/17 04:59 Lymph # 0.4 K/mm3 (1.2-5.4) L 03/28/17 04:59 [place] # 0.7 K/mm3 (0.0-0.8) 03/28/17 04:59 Eos # 0.1 K/mm3 (0.0-0.4) 03/28/17 04:59 Baso # 0.0 K/mm3 (0.0-0.1) 03/28/17 04:59 Seg Neutrophils % 88.9 % (40.0-70.0) H 03/28/17 04:59 Seg Neutrophils # 9.7 K/mm3 (1.8-7.7) H 03/28/17 04:59 PT 19.8 Sec. (12.2-14.9) H 03/28/17 14:42 INR 1.60 (0.87-1.13) H 03/28/17 14:42 APTT 33.2 Sec. (24.2-36.6) 03/28/17 14:42 Sodium 150 mmol/L (137-145) H 03/28/17 14:42 Potassium 4.0 mmol/L (3.6-5.0) 03/28/17 14:42 Chloride 121.1 mmol/L (98-107) H 03/28/17 14:42 Carbon Dioxide 14 mmol/L (22-30) L 03/28/17 14:42 Anion Gap 19 mmol/L 03/28/17 14:42 BUN 23 mg/dL (9-20) H 03/28/17 14:42 Creatinine 1.1 mg/dL (0.8-1.5) 03/28/17 14:42 Estimated GFR > 60 ml/min 03/28/17 14:42 BUN/Creatinine Ratio 20.90 % 03/28/17 14:42 Glucose 105 mg/dL (75-100) H 03/28/17 14:42 POC Glucose 98 (70-105) 03/29/17 01:23 Calcium 6.9 mg/dL (8.4-10.2) L 03/28/17 14:42 Magnesium 1.90 mg/dL (1.7-2.3) 03/28/17 04:59 Total Bilirubin 1.50 mg/dL (0.1-1.2) H 03/24/17 09:24 Direct Bilirubin 0.6 mg/dL (0-0.2) H 03/24/17 09:24 Indirect Bilirubin 0.9 mg/dL 03/24/17 09:24 AST 32 units/L (5-40) 03/24/17 09:24 ALT 14 units/L (7-56) 03/24/17 09:24 Alkaline Phosphatase 129 units/L (35-129) 03/24/17 09:24 Ammonia 103.0 umol/L (25-60) H 03/28/17 04:59 Total Protein 4.7 g/dL (6.3-8.2) L 03/24/17 09:24 Albumin 1.9 g/dL (3.9-5) L 03/24/17 09:24 Albumin/Globulin Ratio 0.7 % 03/24/17 09:24 Lipase 13 units/L (13-60) 03/28/17 04:59 Blood Type O POSITIVE 03/28/17 14:53 Antibody Screen Negative 03/28/17 14:53 Crossmatch See Detail 03/28/17 14:53
[2017-03-29] MEDS: VITAMIN B-1 100 MG, FOLVITE 1 MG, INFUVITE 10 ML in NACL 0.9% 1000 ML 1,000 ML IV SCH (22:42)
[2017-03-30] MEDS: CEPHULAC PO SCH ×3 (00:58→18:03)
[2017-03-30] MEDS: ATIVAN IV PRN (02:30)
[2017-03-30] MEDS: SandoSTATIN 500 MCG in NACL 0.9% 100 ML IV SCH (05:49)
[2017-03-30] MEDS: NACL 0.9% 1000 ML 1,000 ML IV SCH (05:49)
[2017-03-30 06:36] LABS: Basophils % (Auto) 0.2 % (0.0-1.8); Eosinophils % (Auto) 1.2 % (0.0-4.3); Hematocrit 24.9 % (35.5-45.6); Hemoglobin 8.3 gm/dl (11.8-15.2); Mean Corpuscular HGB Conc 33 % (32-34); Mean Corpuscular Hemoglobin 29 pg (28-32); Mean Corpuscular Volume 88 fl (84-94); Red Blood Count 2.83 M/mm3 (3.65-5.03); White Blood Count 5.3 K/mm3 (4.5-11.0)
[2017-03-30 06:37] LABS: Platelet Count 98 K/mm3 (140-440); Red Cell Distribution Width 20.2 % (13.2-15.2)
[2017-03-30 06:52] LABS: Albumin 1.6 g/dL (3.9-5); Albumin/Globulin Ratio 0.5 %; Bilirubin,Direct 2.4 mg/dL (0-0.2); Bilirubin,Indirect 1.7 mg/dL; Bilirubin,Total 4.1 mg/dL (0.1-1.2); Total Protein 4.8 g/dL (6.3-8.2)
[2017-03-30 06:54] LABS: INR 1.93 (0.87-1.13)
[2017-03-30 06:56] LABS: Calcium 7.4 mg/dL (8.4-10.2); Chloride 129.3 mmol/L (98-107); Potassium 3.6 mmol/L (3.6-5.0)
[2017-03-30] MEDS: LIBRIUM PO SCH ×4 (09:28→22:00)
[2017-03-30] MEDS: XIFAXAN PO SCH ×2 (09:28→22:00)
[2017-03-30] MEDS: THERAGRAN-M Tab PO SCH (09:28)
[2017-03-30] MEDS: PROTONIX IV SCH (10:04)
[2017-03-30] MEDS ORDERED: D5NS0.3 1,000 ML IV SCH (12:00)
--- NOTE | 2017-03-30 14:41 | Gastroenterology Progress Note ---
Addendum entered and electronically signed by LARRY DURAN NP 03/30/17 15:27: Patient is not stable for PO intake, consider TPN. Original Note: <LARRY DURAN - Last Filed: 03/30/17 14:41> Assessment and Plan (1) Alcohol withdrawal delirium Sedated, lethargic, unable to answer questions. (2) GI (gastrointestinal bleed) Small amt of red blood noted in BM this AM per nursing. H&H was relatively stable.No brisk bleeding, but probably continued mild subacute bleed. S/P transfusion. Eventual embolization of gastric varices per Dr. Donaldson/ [facility]. (3) Liver cirrhosis, alcoholic -supportive care -INR elevatd, NA elevated. Subjective Date of service: 03/30/17 Principal diagnosis: GI bleed, cirrhosis, Interval history: No acute events overnight. Objective - Constitutional Vitals: Temp Pulse Resp BP Pulse Ox 98.8 F 103 H 20 125/62 99 03/30/17 13:02 03/30/17 09:58 03/30/17 13:02 03/30/17 13:03 03/30/17 08:06 General appearance: no acute distress, other (lethargic, sedated) - Neck Neck: supple - Respiratory Respiratory: bilateral: diminished - Cardiovascular Rhythm: regular - Extremities Extremities: abnormal (venous stasis changes to lower ext. Protective boots. Dressing to bilateral lower ext.) - Gastrointestinal General gastrointestinal: Present: soft, non-tender, normal bowel sounds - Labs CBC & Chem 7: 03/30/17 06:17 03/30/17 06:17 Labs: Laboratory Results - last 24 hr 03/30/17 03/30/17 03/30/17 06:17 06:17 06:17 WBC 5.3 RBC 2.83 L Hgb 8.3 L Hct 24.9 L MCV 88 MCH 29 MCHC 33 RDW 20.2 H Plt Count 98 L Lymph % (Auto) 6.1 L [place] % (Auto) 3.2 Eos % (Auto) 1.2 Baso % (Auto) 0.2 Lymph # 0.3 L [place] # 0.2 Eos # 0.1 Baso # 0.0 Seg Neutrophils % 89.3 H Seg Neutrophils # 4.8 PT 23.0 H INR 1.93 H Sodium 157 H Potassium 3.6 Chloride 129.3 H Carbon Dioxide 15 L Anion Gap 16 BUN 29 H Creatinine 1.4 Estimated GFR 52 BUN/Creatinine Ratio 21 Glucose 57 L Calcium 7.4 L Total Bilirubin Direct Bilirubin Indirect Bilirubin AST ALT Alkaline Phosphatase Total Protein Albumin Albumin/Globulin Ratio 03/30/17 06:17 WBC RBC Hgb Hct MCV MCH MCHC RDW Plt Count Lymph % (Auto) [place] % (Auto) Eos % (Auto) Baso % (Auto) Lymph # [place] # Eos # Baso # Seg Neutrophils % Seg Neutrophils # PT INR Sodium Potassium Chloride Carbon Dioxide Anion Gap BUN Creatinine Estimated GFR BUN/Creatinine Ratio Glucose Calcium Total Bilirubin 4.10 H Direct Bilirubin 2.4 H Indirect Bilirubin 1.7 AST 103 H ALT 38 Alkaline Phosphatase 102 Total Protein 4.8 L Albumin 1.6 L Albumin/Globulin Ratio 0.5 <BROOKS CARLSON - Last Filed: 03/30/17 16:26> Assessment and Plan - Patient Problems (1) Alcohol withdrawal delirium Current Visit: Yes Status: Acute Plan to address problem: Withdrawl continues. Needs nutrition needs met at this point. (2) GI (gastrointestinal bleed) Current Visit: Yes Status: Acute Qualifiers: GI bleed type/associated pathology: G Gastritis type: G Plan to address problem: No further bleeding. (3) Liver cirrhosis, alcoholic Current Visit: Yes Status: Acute Qualifiers: Ascites presence: A Objective - Constitutional Vitals: Temp Pulse Resp BP Pulse Ox 98.8 F 103 H 20 125/62 99 03/30/17 13:02 03/30/17 09:58 03/30/17 13:02 03/30/17 13:03 03/30/17 08:06 - Labs CBC & Chem 7: 03/30/17 06:17 03/30/17 06:17 Labs: Laboratory Results - last 24 hr 03/30/17 03/30/17 03/30/17 06:17 06:17 06:17 WBC 5.3 RBC 2.83 L Hgb 8.3 L Hct 24.9 L MCV 88 MCH 29 MCHC 33 RDW 20.2 H Plt Count 98 L Lymph % (Auto) 6.1 L [place] % (Auto) 3.2 Eos % (Auto) 1.2 Baso % (Auto) 0.2 Lymph # 0.3 L [place] # 0.2 Eos # 0.1 Baso # 0.0 Seg Neutrophils % 89.3 H Seg Neutrophils # 4.8 PT 23.0 H INR 1.93 H Sodium 157 H Potassium 3.6 Chloride 129.3 H Carbon Dioxide 15 L Anion Gap 16 BUN 29 H Creatinine 1.4 Estimated GFR 52 BUN/Creatinine Ratio 21 Glucose 57 L Calcium 7.4 L Total Bilirubin Direct Bilirubin Indirect Bilirubin AST ALT Alkaline Phosphatase Total Protein Albumin Albumin/Globulin Ratio 03/30/17 06:17 WBC RBC Hgb Hct MCV MCH MCHC RDW Plt Count Lymph % (Auto) [place] % (Auto) Eos % (Auto) Baso % (Auto) Lymph # [place] # Eos # Baso # Seg Neutrophils % Seg Neutrophils # PT INR Sodium Potassium Chloride Carbon Dioxide Anion Gap BUN Creatinine Estimated GFR BUN/Creatinine Ratio Glucose Calcium Total Bilirubin 4.10 H Direct Bilirubin 2.4 H Indirect Bilirubin 1.7 AST 103 H ALT 38 Alkaline Phosphatase 102 Total Protein 4.8 L Albumin 1.6 L Albumin/Globulin Ratio 0.5
--- NOTE | 2017-03-30 16:54 | Progress Note ---
Assessment and Plan 61 yo male with alcoholic cirrhosis, s/p TIPS, presented for weakness, hematemesis, black tarry stools and was found to have severe blood loss anemia /Upper GI bleed Given his underlying condition of cirrhosis status post TIPS and significant blood loss, was taken emergently to GI lab and underwent endoscopy which revealed no esophageal varices, but moderate varices in the cardia, gastric curvature and fundus obscured by old blood 03/24 Started on octreotide and PPI drips 03/26 second look endoscopy to exclude additional pathology obscured by old blood ; showed no esophageal varices, 2 clusters of isolated gastric varices in the proximal fundus, moderate portal gastropathy TIPS patent per US but poor quality, CT abd w/contrast ordered, but unable to be obtained Still on Octreotide drip and iv PPI GI following IR plans TIPS revision and embolization of gastric varices when more stable /Severe acute blood loss anemia Hgb 3.4 on admission Transfused total 9 units PRBCs but he continued to have melena, Monitor H&H closely /Hypotension Secondary to hypovolemia S/p PRBCs, IV fluids BP wnl now /Metabolic acidosis likely from hepatic and renal failure Treat underlying conditions /Coagulopathy Secondary to cirrhosis /Pancreatitis NPO, IV fluids, pain control medication /Acute toxic metabolic encephalopathy Hepatitic encephalopathy/DTs Lactulose, Rifaximin, BZ /Severe protein caloric malnutrition Diet supplementation when able to take by mouth Meanwhile consider TF through NG if GI agrees /Alcohol abuse/DTs on CIWA protocol /EFREM/ATN likely from hypovolumia cont iv fluid, monitor renal function avoid nephrotoxin /DVT prophylaxis SCDs. No pharmacological agent given severe anemia Subjective Date of service: 03/30/17 Principal diagnosis: GI bleed, cirrhosis, Interval history: Restrained , No further bleeding, still confused and agitated at times Objective - Exam Narrative Exam: General appearance: Present: mild distress, cachectic, other (nonresponsive, but moving randomly) - EENT Eyes: Present: PERRL, EOM intact - Neck Neck: Present: supple. Absent: enlarged thyroid, masses or JVD - Respiratory Respiratory effort: other (tachypneic) - Cardiovascular Rhythm: other (tachycardic) Heart Sounds: Present: S1 & S2. Absent: systolic murmur - Extremities Extremities: no ischemia Extremity abnormal: other (multiple leg ulcers) - Abdominal General gastrointestinal: soft, non-tender, non-distended, normal bowel sounds - Psychiatric Psychiatric: no appropriate mood/affect, no intact judgment & insight, agitated - Neurologic Neurologic: moves all extremities - Constitutional Vitals: Vital Signs - 12hr 03/30/17 03/30/17 03/30/17 08:00 08:06 09:58 Temperature 98.9 F Pulse Rate 106 H 105 H 103 H Respiratory Rate Blood Pressure Blood Pressure 112/67 [Left] O2 Sat by Pulse 99 Oximetry 03/30/17 03/30/17 13:02 13:03 Temperature 98.8 F Pulse Rate Respiratory 20 Rate Blood Pressure 125/62 125/62 Blood Pressure [Left] O2 Sat by Pulse Oximetry - Labs CBC & Chem 7: 03/30/17 06:17 03/31/17 07:30 Labs: Abnormal lab results 03/30/17 03/30/17 03/30/17 Range/Units 06:17 06:17 06:17 RBC 2.83 L (3.65-5.03) M/mm3 Hgb 8.3 L (11.8-15.2) gm/dl Hct 24.9 L (35.5-45.6) % RDW 20.2 H (13.2-15.2) % Plt Count 98 L (140-440) K/mm3 Lymph % (Auto) 6.1 L (13.4-35.0) % Lymph # 0.3 L (1.2-5.4) K/mm3 Seg Neutrophils % 89.3 H (40.0-70.0) % PT 23.0 H (12.2-14.9) Sec. INR 1.93 H (0.87-1.13) Sodium 157 H (137-145) mmol/L Chloride 129.3 H (98-107) mmol/L Carbon Dioxide 15 L (22-30) mmol/L BUN 29 H (9-20) mg/dL Glucose 57 L (75-100) mg/dL Calcium 7.4 L (8.4-10.2) mg/dL Total Bilirubin (0.1-1.2) mg/dL Direct Bilirubin (0-0.2) mg/dL AST (5-40) units/L Total Protein (6.3-8.2) g/dL Albumin (3.9-5) g/dL 03/30/17 Range/Units 06:17 RBC (3.65-5.03) M/mm3 Hgb (11.8-15.2) gm/dl Hct (35.5-45.6) % RDW (13.2-15.2) % Plt Count (140-440) K/mm3 Lymph % (Auto) (13.4-35.0) % Lymph # (1.2-5.4) K/mm3 Seg Neutrophils % (40.0-70.0) % PT (12.2-14.9) Sec. INR (0.87-1.13) Sodium (137-145) mmol/L Chloride (98-107) mmol/L Carbon Dioxide (22-30) mmol/L BUN (9-20) mg/dL Glucose (75-100) mg/dL Calcium (8.4-10.2) mg/dL Total Bilirubin 4.10 H (0.1-1.2) mg/dL Direct Bilirubin 2.4 H (0-0.2) mg/dL AST 103 H (5-40) units/L Total Protein 4.8 L (6.3-8.2) g/dL Albumin 1.6 L (3.9-5) g/dL
[2017-03-30] MEDS ORDERED: D5/0.45NS 1,000 ML IV SCH (17:00)
[2017-03-30] MEDS: VITAMIN B-1 100 MG, FOLVITE 1 MG, INFUVITE 10 ML in NACL 0.9% 1000 ML 1,000 ML IV SCH (18:10)
[2017-03-31] MEDS: ATIVAN IV PRN ×2 (01:02→04:52)
[2017-03-31] MEDS: CEPHULAC PO SCH ×3 (01:36→19:32)
[2017-03-31] MEDS: SandoSTATIN 500 MCG in NACL 0.9% 100 ML IV SCH ×2 (01:37→12:15)
[2017-03-31 09:05] LABS: Calcium 7.1 mg/dL (8.4-10.2); Chloride 130.2 mmol/L (98-107); Potassium 3.4 mmol/L (3.6-5.0)
--- NOTE | 2017-03-31 09:38 | XRay Report ---
SUPINE KUB: History: Dobbhoff tube placement. The feeding tube terminates just beyond the GE junction within the fundus of the stomach. Consider advancement by 5-10 cm. The bowel gas pattern is within normal limits. No evidence for obstruction. TIPS shunt and vascular coils in the epigastric region are noted, correlate with history. IMPRESSION: Feeding tube as described.
--- NOTE | 2017-03-31 10:19 | Progress Note ---
Assessment and Plan Given his overall hemodynamic stability and severely altered mental status, there is no immediate indication for acute TIPS interrogation. We will continue to monitor the patient for any acute changes. Subjective Date of service: 03/31/17 Principal diagnosis: GI bleed, cirrhosis, Interval history: Pt continues to have severely altered mental status. He does not respond to questions or other verbal stimuli. While he is not on CPAP or other respiratory assistance, his respirations sound somewhat labored with retained secretions. He's not had any bleeding events in the last 48 hours, and his Hb and vitals remain stable. Objective - Constitutional Vitals: Vital Signs - 12hr 03/31/17 03/31/17 03/31/17 00:00 04:55 08:06 Temperature 98.1 F 98.2 F Pulse Rate 101 H Respiratory 18 18 Rate Blood Pressure 114/41 116/50 Blood Pressure 116/48 [Left] O2 Sat by Pulse 96 Oximetry General appearance: Present: mild distress - Respiratory Respiratory effort: labored - Neurologic Neurologic: moves all extremities - Psychiatric Psychiatric: other (AMS, nonresponsive to verbal stimuli) - Labs CBC & Chem 7: 03/30/17 06:17 03/31/17 07:30 Labs: Abnormal lab results 03/28/17 03/31/17 Range/Units 14:53 07:30 Sodium 159 H (137-145) mmol/L Potassium 3.4 L (3.6-5.0) mmol/L Chloride 130.2 H (98-107) mmol/L Carbon Dioxide 16 L (22-30) mmol/L BUN 34 H (9-20) mg/dL Creatinine 1.8 H (0.8-1.5) mg/dL Glucose 104 H (75-100) mg/dL Calcium 7.1 L (8.4-10.2) mg/dL Crossmatch See Detail
--- NOTE | 2017-03-31 11:44 | Gastroenterology Progress Note ---
<CHOLO AWAD - Last Filed: 03/31/17 11:58> Assessment and Plan 1.GI bleed 2.alcohol withdrawal delirium 3.alcoholic cirrhosis -HGB 8.3- trending up -continue to monitor H/H and transfuse as needed -no active sign of bleeding overnight or this am- consider TIPS revision and embolization of gastric varices when stable or if bleeding reoccurs -pt currently with AMS and lethargic- dobhoff placed for nutrition -continue current medications and supportive care -continue supportive care -will follow Subjective Date of service: 03/31/17 Principal diagnosis: GI bleed, cirrhosis, Interval history: Patient with severely altered mental status. Lethargic and unable to answer question. No signs of active bleeding overnight or this am per nursing. Objective - Constitutional Vitals: Temp Pulse Resp BP Pulse Ox 98.2 F 101 H 18 116/50 96 03/31/17 04:55 03/31/17 00:00 03/31/17 04:55 03/31/17 08:06 03/31/17 00:00 General appearance: mild distress - Respiratory Respiratory: bilateral: rhonchi (anterior) - Cardiovascular Rhythm: other (tachycardia) Heart Sounds: Present: S1 & S2 - Extremities Extremity abnormal: other (venous stasis changes to lower ext) - Gastrointestinal General gastrointestinal: Present: soft, non-distended, normal bowel sounds - Neurologic Neurological: other - Labs CBC & Chem 7: 03/30/17 06:17 03/31/17 07:30 Labs: Laboratory Results - last 24 hr 03/28/17 03/31/17 14:53 07:30 Sodium 159 H Potassium 3.4 L Chloride 130.2 H Carbon Dioxide 16 L Anion Gap 16 BUN 34 H Creatinine 1.8 H Estimated GFR 39 BUN/Creatinine Ratio 19 Glucose 104 H Calcium 7.1 L Crossmatch See Detail <BROOKS CARLSON - Last Filed: 03/31/17 13:38> Assessment and Plan - Patient Problems (1) Alcohol withdrawal delirium Current Visit: Yes Status: Acute Plan to address problem: Unimproved delirium. (2) GI (gastrointestinal bleed) Current Visit: Yes Status: Acute Qualifiers: GI bleed type/associated pathology: G Gastritis type: G Plan to address problem: No further bleeding. (3) Liver cirrhosis, alcoholic Current Visit: Yes Status: Acute Qualifiers: Ascites presence: A Plan to address problem: End stage with active alcoholism on admission. Hx TIPs. UGI bleed from gastric varices on admission. Apparently, patient is going to hospice today per nurse report. Will s/o and f/u at your request in that light. Objective - Constitutional Vitals: Temp Pulse Resp BP Pulse Ox 98.2 F 98 H 18 116/50 96 03/31/17 04:55 03/31/17 10:00 03/31/17 04:55 03/31/17 08:06 03/31/17 00:00 - Labs CBC & Chem 7: 03/30/17 06:17 03/31/17 07:30 Labs: Laboratory Results - last 24 hr 03/28/17 03/31/17 14:53 07:30 Sodium 159 H Potassium 3.4 L Chloride 130.2 H Carbon Dioxide 16 L Anion Gap 16 BUN 34 H Creatinine 1.8 H Estimated GFR 39 BUN/Creatinine Ratio 19 Glucose 104 H Calcium 7.1 L Crossmatch See Detail
--- NOTE | 2017-03-31 11:57 | XRay Report ---
SUPINE KUB: History: Dobbhoff tube placement. The Dobbhoff tube has been advance since earlier today at 0921 hours and is now coiled in the mid stomach. The remainder of the examination is unchanged. IMPRESSION: Feeding tube as described.
--- NOTE | 2017-03-31 12:00 | Discharge Summary ---
Providers - Providers Date of Admission: 03/24/17 12:29 Date of discharge: 03/31/17 Attending physician: STEFAN RODRIGUEZ 03/28/17 12:24 Consult to Dietitian/Nutrition [CONS] Routine Physician Instructions: Assess nutrtn needs, initiate, modify, manage TF Reason For Exam: Reason for Consult: Write/Manage Tube Feeding Reason for Consult: Write/Manage Tube Feeding 03/29/17 12:11 Consult to Wound/ET Nurse [CONS] Routine Reason For Exam: wound eval Primary care physician: [facility] Hospitalization Condition: Critical Hospital course: 61 yo male with alcoholic cirrhosis, s/p TIPS, presented for weakness, hematemesis, black tarry stools and was found to have severe blood loss anemia /Upper GI bleed Given his underlying condition of cirrhosis status post TIPS and significant blood loss, was taken emergently to GI lab and underwent endoscopy which revealed no esophageal varices, but moderate varices in the cardia, gastric curvature and fundus obscured by old blood 03/24 Started on octreotide and PPI drips 03/26 second look endoscopy to exclude additional pathology obscured by old blood ; showed no esophageal varices, 2 clusters of isolated gastric varices in the proximal fundus, moderate portal gastropathy TIPS patent per US but poor quality, CT abd w/contrast ordered, but unable to be obtained Still on Octreotide drip and iv PPI GI following IR plans TIPS revision and embolization of gastric varices when more stable /Severe acute blood loss anemia Hgb 3.4 on admission Transfused total 9 units PRBCs but he continued to have melena, Monitor H&H closely /Hypotension Secondary to hypovolemia S/p PRBCs, IV fluids BP wnl now /Metabolic acidosis likely from hepatic and renal failure Treat underlying conditions /Coagulopathy Secondary to cirrhosis /Pancreatitis NPO, IV fluids, pain control medication /Acute toxic metabolic encephalopathy Hepatitic encephalopathy/DTs Lactulose, Rifaximin, BZ /Severe protein caloric malnutrition Diet supplementation when able to take by mouth Meanwhile consider TF through NG if GI agrees /Alcohol abuse/DTs on CIWA protocol /EFREM/ATN likely from hypovolumia cont iv fluid, monitor renal function avoid nephrotoxin /DVT prophylaxis SCDs. No pharmacological agent given severe anemia Procedures EXCISION OF STOMACH, ENDO, DIAGN (03/24/17) Disposition: [id number] ([facility]) Time spent for discharge: 32 minutes Core Measure Documentation - Palliative Care Palliative Care/ Comfort Measures: Hospice Care - Core Measures Any of the following diagnoses?: none Exam - Physical Exam Narrative exam: General appearance: Present: mild distress, cachectic, other (nonresponsive, but moving randomly) - EENT Eyes: Present: PERRL, EOM intact - Neck Neck: Present: supple. Absent: enlarged thyroid, masses or JVD - Respiratory Respiratory effort: other (tachypneic) - Cardiovascular Rhythm: other (tachycardic) Heart Sounds: Present: S1 & S2. Absent: systolic murmur - Extremities Extremities: no ischemia Extremity abnormal: other (multiple leg ulcers) - Abdominal General gastrointestinal: soft, non-tender, non-distended, normal bowel sounds - Psychiatric Psychiatric: no appropriate mood/affect, no intact judgment & insight, agitated - Neurologic Neurologic: moves all extremities - Constitutional Vitals: Temp Pulse Resp BP Pulse Ox 98.2 F 101 H 18 116/50 96 03/31/17 04:55 03/31/17 00:00 03/31/17 04:55 03/31/17 08:06 03/31/17 00:00 Plan Activity: other (bedrest) Diet: clear liquids Follow up with: PRIMARY CARE, [Primary Care Provider] - 3-5 Days Prescriptions: chlordiazePOXIDE [Librium] 25 mg PO Q6H PRN #14 capsule PRN Reason: Anxiety Lactulose [Cephulac] 20 gm PO Q6HR 14 Days Multivitamin Tab W-MINERAL [Multiple Vitamin/Mineral (Theragran M)] 1 each PO QDAY #30 tablet Pantoprazole [Protonix] 40 mg PO BID #30 tablet Rifaximin [Xifaxan] 550 mg PO BID #60 tablet
[2017-03-31] MEDS: LIBRIUM PO SCH (19:31)
[2017-03-31] MEDS: PROTONIX IV SCH (19:31)
[2017-03-31] MEDS: THERAGRAN-M Tab PO SCH (19:31)
[2017-03-31] MEDS: XIFAXAN PO SCH (19:32)
[2017-03-31] MEDS ORDERED: TPN ADULT 3,000 ML IV SCH ×2 (20:00)
[2017-03-31 21:09] VITALS: BP 145/75
== END 2017-03-31 20:30 | disposition hospice, inpatient (51) | DRG 377 ==
LOC: ED 08:31 → CC1 12:29 → 4A 03-26 15:11
PROVIDERS: ADMIT Internal Medicine; ATTEND Internal Medicine
PROC: 30233N1 Transfusion of Nonautologous Red Blood Cells into Peripheral Vein, Percutaneous Approach (ICD-10-PCS; 2017-03-24)
PROC: 0DJ08ZZ Inspection of Upper Intestinal Tract, Via Natural or Artificial Opening Endoscopic (ICD-10-PCS; 2017-03-24)
PROC: 0DJ08ZZ Inspection of Upper Intestinal Tract, Via Natural or Artificial Opening Endoscopic (ICD-10-PCS; 2017-03-26)
PROC: 0DH67UZ Insertion of Feeding Device into Stomach, Via Natural or Artificial Opening (ICD-10-PCS; principal; 2017-03-31)
DX: K92.2 Gastrointestinal hemorrhage, unspecified (principal); K85.90 Acute pancreatitis without necrosis or infection, unspecified; G92 Toxic encephalopathy; N17.0 Acute kidney failure with tubular necrosis; E43 Unspecified severe protein-calorie malnutrition; E87.2 Acidosis; D62 Acute posthemorrhagic anemia; F10.231 Alcohol dependence with withdrawal delirium; M86.60 Other chronic osteomyelitis, unspecified site; K76.6 Portal hypertension; I86.4 Gastric varices; I95.9 Hypotension, unspecified; K70.30 Alcoholic cirrhosis of liver without ascites; Z88.0 Allergy status to penicillin; F17.200 Nicotine dependence, unspecified, uncomplicated; F32.9 Major depressive disorder, single episode, unspecified; Z82.49 Family history of ischemic heart disease and other diseases of the circulatory system; J44.9 Chronic obstructive pulmonary disease, unspecified; Z68.23 Body mass index [BMI] 23.0-23.9, adult; K31.89 Other diseases of stomach and duodenum
CPT/HCPCS: 36415; 71010; 74000; 80048; 80053; 80074; 82106; 82140; 82962; 83690; 83735; 85014; 85018; 85025; 85027; 85610; 85730; 86850; 86900; 86901; 86920; 93005; 93010; 93979; 96361; 96374; 96375; C9113; J1630; J2060; J2354; J2405; J2560; J2704; J3411; J7030; J7040; P9016